=== PATIENT | female | born 1975 | race Caucasian/White ===

== ENCOUNTER → 2018-07-21 12:17 | Outpatient (CLI) | payer BC, SELFPAY ==
[2017-10-12 10:06] VITALS: BMI 42.7
--- NOTE | 2018-07-21 12:26 | RAD_ITS ---
STUDY: X-RAY CHEST REASON FOR EXAM: Female, 42 years old. Asthma exacerbation TECHNIQUE: Frontal and lateral views of the chest. COMPARISON: None. FINDINGS: Right middle lobe alveolar disease and atelectasis. Left basilar atelectasis. There is no demonstrated pleural abnormality. Normal size heart. Normal mediastinum and carmenza. Normal visualized pulmonary arteries. Normal visualized aortic arch and descending thoracic aorta. Normal visualized thoracic spine. Normal visualized ribs, clavicles, and shoulders. There is no demonstrated abnormality of the visualized soft tissue structures of the upper abdomen. RAD/Chest PA and Lateral IMPRESSION: Right middle lobe alveolar disease and atelectasis. Left basilar atelectasis. Electronically Signed: Benji Lopez MD at 1:45 EST Tel , Service support ,
== END ==
PROVIDERS: Family Provider Family Medicine; PCP Family Medicine; Referring Provider Family Medicine; Visit Provider Family Medicine
DX: J45.901 Unspecified asthma with (acute) exacerbation (principal)
CPT/HCPCS: 71046

== ENCOUNTER → 2019-03-24 | Outpatient (CLI) | payer BC, SELFPAY ==
[2018-09-16 17:24] VITALS: BMI 43.6
[2019-03-24 12:50] LABS: Creatinine, Serum 0.74 mg/dL (0.55-1.02); EST Glomerular Filtration Rate 90 mL/min (>60); Est Glom Filt Rate - Afr Amer 109 mL/min (>60)
[2019-03-24 13:10] LABS: Microalbumin,Random Urine < 5.0 mg/L (NO RANGE EST.)
== END | disposition home or self-care (01) ==
LOC: MFPLAB 10:30
PROVIDERS: Family Provider Family Medicine; PCP Family Medicine; Referring Provider Family Medicine; Visit Provider Family Medicine
DX: I10 Essential (primary) hypertension (principal)
CPT/HCPCS: 36415; 82043; 82565

== ENCOUNTER → 2020-02-28 | Outpatient (CLI) | payer BC, SELFPAY ==
[2018-09-16 17:24] VITALS: BMI 43.6
[2020-02-28 12:14] LABS: Absolute Lymphocyte Count 2.87 X10^3/uL (0.83-4.51); Absolute Neutrophil Count 5.3 X10^3/uL (2.0-7.7); Basophil# 0.03 X10^3/uL; Basophil% 0.3 % (0-1); Eosinophils% 2.3 % (0-5); Hemoglobin 14.5 g/dL (12.0-15.0); Lymphocyte # 2.87 X10^3/ul (4.0); Lymphocyte % 32.4 % (19-41); Mean Corpuscular Hgb 29.4 pg (27.0-32.0); Mean Corpuscular Volume 89.2 fL (81-99); Mean Platelet Vol. 9.7 fl (6.2-12.0); Monocyte# 0.49 X10^3/uL; Monocyte% 5.5 % (0-10); NRBC Flagged by Analyzer 0 % (0-5); Neutrophil # 5.26 X10^3/uL (2.7-7.7); Neutrophil % 59.3 % (47-70); Platelet Count 294 K/mm3 (150-450); RBC Distribution Width CV 12.3 % (11.6-14.6); RBC Distribution Width SD 40.1 fl (35.1-43.9); Red Blood Count 4.93 M/mm3 (4.2-5.4); White Blood Count 8.9 K/mm3 (4.4-11.0)
[2020-02-28 12:56] LABS: ALB/GLOB Ratio 0.8 RATIO (0.9-2.4); AST(SGOT) 16 U/L (15-37); Alanine Aminotransfer ALT/SGPT 21 U/L (13-56); Albumin, Serum 3.4 g/dL (3.2-5.0); Alkaline Phosphatase 88 U/L (45-117); Anion Gap 4 (5-15); BUN 10 mg/dL (7-18); BUN/Creat Ratio 13.2 RATIO (10-20); Calcium,Total 9.2 mg/dL (8.5-10.1); Chloride 107 mmol/L (98-107); Cholesterol 158 mg/dL (200); Creatinine, Serum 0.76 mg/dL (0.55-1.02); EST Glomerular Filtration Rate 88 mL/min (>60); Est Glom Filt Rate - Afr Amer 106 mL/min (>60); Glucose 80 mg/dL (74-106); High Density Lipoprotein 42 mg/dL; Potassium 4.3 mmol/L (3.5-5.1); Protein, Total 7.4 g/dL (6.4-8.2); Sodium Level 140 mmol/L (136-145); Triglycerides 241 mg/dL; Very Low Density Lipoprotein 48 mg/dL (5-40)
== END | disposition home or self-care (01) ==
PROVIDERS: PCP Family Medicine; Referring Provider Family Medicine; Visit Provider Registered Nurse
DX: I10 Essential (primary) hypertension (principal)
CPT/HCPCS: 36415; 80053; 80061; 85025

== ENCOUNTER → 2021-02-23 | Outpatient (CLI) | payer BC, SELFPAY | END | disposition home or self-care (01) | LOC: LABSPEC 16:30 | PROVIDERS: PCP Family Medicine; Referring Provider Family Medicine; Visit Provider Family Medicine | DX: U07.1 COVID-19 (principal) | CPT/HCPCS: 87633; 87635; U0005; U0003 ==

== ENCOUNTER 2021-09-10 17:53 | Outpatient (CLI) | payer BC, SELFPAY ==
[2021-09-18 16:49] LABS: HPV Reflexed? NOT INDICATED
== END 2021-09-10 23:59 | disposition home or self-care (01) ==
PROVIDERS: PCP Family Medicine; Visit Provider Family Medicine
DX: Z12.4 Encounter for screening for malignant neoplasm of cervix (principal)
CPT/HCPCS: 88175; G0145

== ENCOUNTER → 2021-12-13 | Outpatient (CLI) | payer BC, SELFPAY ==
[2021-12-13 13:02] LABS: Microalbumin,Random Urine < 5.0 mg/L (NO RANGE EST.)
[2021-12-13 13:12] LABS: ALB/GLOB Ratio 0.8 RATIO (0.9-2.4); AST(SGOT) 19 U/L (15-37); Alanine Aminotransfer ALT/SGPT 27 U/L (13-56); Albumin, Serum 3.5 g/dL (3.2-5.0); Alkaline Phosphatase 96 U/L (45-117); Anion Gap 8 (5-15); BUN 10 mg/dL (7-18); BUN/Creat Ratio 13.5 RATIO (10-20); Calcium,Total 9.3 mg/dL (8.5-10.1); Chloride 103 mmol/L (98-107); Cholesterol 180 mg/dL (200); Creatinine, Serum 0.74 mg/dL (0.55-1.02); EST Glomerular Filtration Rate 90 mL/min (>60); Est Glom Filt Rate - Afr Amer 109 mL/min (>60); Globulin 4.6 g/dL (2.2-4.2); Glucose 90 mg/dL (74-106); High Density Lipoprotein 43 mg/dL; Potassium 3.9 mmol/L (3.5-5.1); Protein, Total 8.1 g/dL (6.4-8.2); Sodium Level 139 mmol/L (136-145); Triglycerides 253 mg/dL; Very Low Density Lipoprotein 51 mg/dL (5-40)
[2021-12-13 13:25] LABS: Hemoglobin A1c 5.1 % (3.8-5.6)
== END | disposition home or self-care (01) ==
LOC: MFPLAB 09:53
PROVIDERS: PCP Family Medicine; Visit Provider Family Medicine
DX: Z00.00 Encounter for general adult medical examination without abnormal findings (principal); E66.01 Morbid (severe) obesity due to excess calories; Z68.41 Body mass index [BMI] 40.0-44.9, adult; I10 Essential (primary) hypertension; Z13.220 Encounter for screening for lipoid disorders
CPT/HCPCS: 36415; 80053; 80061; 82043; 82570; 83036

== ENCOUNTER → 2022-03-15 | Outpatient (CLI) | payer BC, SELFPAY ==
[2022-03-15 17:56] LABS: ALB/GLOB Ratio 0.8 RATIO (0.9-2.4); AST(SGOT) 20 U/L (15-37); Alanine Aminotransfer ALT/SGPT 26 U/L (13-56); Albumin, Serum 3.5 g/dL (3.2-5.0); Alkaline Phosphatase 90 U/L (45-117); Anion Gap 5 (5-15); BUN 10 mg/dL (7-18); BUN/Creat Ratio 12.4 RATIO (10-20); Calcium,Total 9.5 mg/dL (8.5-10.1); Chloride 106 mmol/L (98-107); EST Glomerular Filtration Rate 81 mL/min (>60); Est Glom Filt Rate - Afr Amer 98 mL/min (>60); Globulin 4.4 g/dL (2.2-4.2); Glucose 94 mg/dL (74-106); Potassium 4.2 mmol/L (3.5-5.1); Protein, Total 7.9 g/dL (6.4-8.2); Sodium Level 139 mmol/L (136-145); Thyroid Stim Hormone (TSH) 0.73 uIU/mL (0.358-3.74)
[2022-03-15 19:07] LABS: Microalbumin,Random Urine < 5.0 mg/L (NO RANGE EST.)
== END | disposition home or self-care (01) ==
LOC: MFPLAB 16:24
PROVIDERS: PCP Family Medicine; Referring Provider Family Medicine; Visit Provider Family Medicine
DX: I10 Essential (primary) hypertension (principal)
CPT/HCPCS: 36415; 80053; 82043; 82570; 84443

== ENCOUNTER 2022-06-17 10:12 | Emergency (ER) | payer BC, SELFPAY ==
[2022-06-17 10:13] VITALS: BP 184/118; PULSE 136; RESP 18; TEMP 36.8; O2SAT 99; BMI 42.9
--- NOTE | 2022-06-17 10:35 | CT_ITS ---
HISTORY: Right lower quadrant pain. TECHNIQUE: Helically acquired images were obtained of the abdomen and pelvis after the intravenous administration of 100mL Isovue-370. A radiation dose optimization technique was used for this scan. 458 images. COMPARISON: None. FINDINGS: LOWER CHEST: Right middle lobe opacity with air bronchograms. Mild dependent and tree-in-bud nodular opacities with mild atelectasis in the bilateral lower lobes. BOWEL: Bowel including appendix nondilated. Scattered stool in the colon. No terminal ileal, periappendiceal, or focal pericolonic inflammatory change observed. PERITONEUM: No significant ascites. LIVER: No enhancing mass. GALLBLADDER/BILIARY TREE: Multiple gallstones. SPLEEN/PANCREAS: Homogeneous and nonenlarged. KIDNEYS: No hydronephrosis. 9 mm right upper pole cyst. ADRENAL GLANDS: No nodules. VESSELS: No abdominal aortic aneurysm. PELVIC ORGANS: Unremarkable. ABDOMINAL WALL: Moderate sized fat-containing periumbilical hernia. BONES: Mild degenerative change. Mild lumbar levoscoliosis. CT/Abdomen/Pelvis W IV Cont ONLY IMPRESSION: Mild bibasilar atelectasis or pneumonia. Cholelithiasis. Unremarkable appendix. Small right renal cyst. Fat-containing paraumbilical hernia. Electronically Signed: Beth Almanza MD at 11:43 EST ,
[2022-06-17 10:52] LABS: Bacteria 0 SEEN /hpf (None Seen); Mucous, Urine 0 SEEN /hpf (<or=2+); Red Blood Cells-Urine 0 SEEN /hpf (0-5); Squamous Epithelial Cells - UA 0 SEEN /hpf (5-10); White Blood Cells 0 SEEN /hpf (0-5)
[2022-06-17 11:00] LABS: Color, Urine Yellow (Yellow); Glucose, Dipstick Normal (Normal); Ketone-Dipstick Negative (Negative); Leukocyte Esterase-Dipstick Negative /ul (Negative); Nitrite-Dipstick Negative (Negative); Occult Blood-Urine Negative /ul (Negative); Protein-Dipstick Negative (Negative); Urine Bilirubin Dipstick Negative (Negative); Urine Clarity Clear (Clear); Urine Urobilinogen Normal (Normal)
[2022-06-17 11:02] LABS: Absolute Lymphocyte Count 2.88 X10^3/uL (0.83-4.51); Absolute Neutrophil Count 7.3 X10^3/uL (2.0-7.7); Basophil# 0.05 X10^3/uL; Basophil% 0.5 % (0-1); Eosinophil# 0.26 X10^3/uL; Eosinophils% 2.4 % (0-5); Hematocrit 44.5 % (37-47); Hemoglobin 15.1 g/dL (12.0-15.0); Lymphocyte # 2.88 X10^3/ul (0.83-4.51); Lymphocyte % 26.2 % (19-41); Mean Corp Hgb Conc 33.9 g/dL (32-36); Mean Corpuscular Volume 88.3 fL (81-99); Mean Platelet Vol. 8.8 fl (6.2-12.0); Monocyte# 0.49 X10^3/uL; Monocyte% 4.5 % (0-10); NRBC Flagged by Analyzer 0 % (0-5); Neutrophil # 7.28 X10^3/uL (2.7-7.7); Platelet Count 337 K/mm3 (150-450); RBC Distribution Width CV 12.4 % (11.6-14.6); RBC Distribution Width SD 39.9 fl (35.1-43.9); Red Blood Count 5.04 M/mm3 (4.2-5.4)
[2022-06-17 11:14] LABS: Internal QC Validated? YES +Cl - CLEAR BKGD; Pregnancy, Serum, hCG Quali. NEGATIVE Negative
[2022-06-17 11:15] LABS: Anion Gap 4 (5-15); BUN 6 mg/dL (7-18); BUN/Creat Ratio 7.6 RATIO (10-20); Calcium,Total 9.3 mg/dL (8.5-10.1); Chloride 105 mmol/L (98-107); Creatinine, Serum 0.79 mg/dL (0.55-1.02); EST Glomerular Filtration Rate 83 mL/min (>60); Est Glom Filt Rate - Afr Amer 100 mL/min (>60); Estimated Creatinine Clearance 76.84 ml/min; Glucose 100 mg/dL (74-106); Potassium 3.6 mmol/L (3.5-5.1); Sodium Level 139 mmol/L (136-145)
[2022-06-17 11:57] VITALS: BP 148/99; PULSE 107; RESP 16; O2SAT 99
--- NOTE | 2022-06-17 12:50 | EDS_ITS ---
HPI History of Present Illness Chief Complaint: Abd Pain Informant: patient Narrative Narrative: She states she has had some discomfort of her abdomen since yesterday morning. She has had some rumbling of her bowels. She did have some slightly softer stools but no blood. She has never had nausea vomiting fevers or chills. The pain is always been down mostly in the right lower quadrant but does kind of go across the lower abdomen. Its not upper abdomen. She still has her appendix. She has no urinary symptoms such as frequency urgency dysuria hematuria. No discharge. No flank pain. Never had kidney stones. Nothing specifically makes better or worse. [facility] Medical History Acute bronchitis, unspecified Asthma child Fatigue Hay fever HTN (hypertension) Migraines SOB (shortness of breath) Home Medications albuterol sulfate 90 mcg/actuation aerosol inhaler (ProAir HFA) 2 puff inhalation Q4H PRN PRN Asthma 02/07/14 [History Last Taken Unknown] amlodipine 5 mg-benazepril 10 mg capsule (Lotrel) 1 capsule PO QHS 02/07/14 [History Last Taken Unknown] fluticasone propionate 50 mcg/actuation nasal spray,suspension 1 spray NASAL BID 02/07/14 [History Last Taken Unknown] cetirizine 10 mg capsule (Zyrtec) 10 mg PO QDAY 10/12/17 [History Last Taken Unknown] clotrimazole 10 mg amnada 10 mg mucous membrane ONCE #70 tabs 10/12/17 [Rx Last Taken Unknown] losartan 25 mg tablet 25 mg PO QDAY 10/12/17 [History Last Taken Unknown] montelukast 10 mg tablet 10 mg PO DAILY 10/12/17 [History Last Taken Unknown] fluticasone furoate 200 mcg-vilanterol 25 mcg/dose inhalation powder (Breo Ellipta) 1 inh inhalation DAILY 06/17/22 [History Last Taken Unknown] Allergy/AdvReac Type Severity Reaction Status Date / Time Penicillins Allergy Hives Verified 06/17/22 10:16 Sulfa (Sulfonamide Allergy Rash Verified 06/17/22 10:16 Antibiotics) amoxicillin [From Augmentin] AdvReac Unknown yeast Verified 06/17/22 10:16 infection clavulanic acid AdvReac Unknown yeast Verified 06/17/22 10:16 [From Augmentin] infection Social History Smoking Status: Never smoker alcohol intake: never ROS ROS ED Constitutional Constitutional ED: Denies chills, fever(s), subjective or sweats ENT ENT ED: Denies sore throat Cardiovascular Cardiovascular: Denies chest pain or palpitations Respiratory/Chest Respiratory/Chest: Denies cough or dyspnea Gastrointestinal Gastrointestinal: Reports abdominal pain and diarrhea; Denies constipation, melena, nausea or vomiting Genitourinary Genitourinary ED: Denies dysuria, hematuria or urinary frequency Musculoskeletal Musculoskeletal: Denies arthralgias, back pain, myalgias or neck pain Integumentary Denies rash Endocrine Endocrinology: Denies polydipsia or polyuria Hematologic/Lymphatic Hematologic/Lymphatic: Denies easy bleeding or easy bruising Allergic/Immunologic Allergic/Immunologic ED: Denies urticaria EXAM Physical Exam Const Vital Signs: 06/17/22 10:13 06/17/22 11:57 Temperature 98.2 F Temperature Source Temporal Pulse Rate 136 H 107 H Respiratory Rate 18 16 Blood Pressure 184/118 H 148/99 H Blood Pressure Mean 140 115 Pulse Ox 99 99 Oxygen Delivery Method Room Air Room Air Positive well nourished and well developed General Appearance ED: well developed and NAD; Negative for pallor HEENT Reports moist mucous membranes Eyes General Eye ED: Negative for scleral icterus Chest Wall inspection of chest normal Resp normal respiratory effort and clear to auscultation bilaterally Cardio regular rate, regular rhythm and no murmurs Rate: other Other Details: On my exam heart rate is about 100. GI normal to inspection, nondistended, normoactive bowel sounds GI Narrative: Abdomen is soft. Bowel sounds are normal. Not distended. She really has no notable tenderness down the right lower quadrant. No rebound or guarding. No CVA tenderness. Despite her symptoms, this is a surprisingly benign exam. Narrative: No suprapubic or CVA tenderness. Back/Spine no CVA tenderness Extremity General Extremety ED: Negative for tenderness Neuro Sensorium / Orientation: alert Skin General Skin Exam: Negative for pallor MDM MDM MDM Narrative Medical decision making narrative: CT scan of her abdomen is not showing any acute cause of her symptoms. Her CBC showed normal white count and platelets. Hemoglobin was minimally elevated. E lectrolytes were unremarkable. Urine is clean showed no sign infection. test was negative. There is no indication of the cause of her symptoms. I do not think she needs further work-up or imaging. I do not think she requires admission. I think rest and bowel rest should be appropriate. She is eating and drinking normally. If she develops pain fevers urinary symptoms or other concerning findings she should return. I think she is safe for discharge. No sign of kidney stone as a source of her pain also. Lab Data Attestation: I reviewed the patient's lab results. Labs: Laboratory Results - last 24 hr 06/17/22 06/17/22 06/17/22 10:45 10:50 10:50 WBC 11.0 RBC 5.04 Hgb 15.1 H Hct 44.5 MCV 88.3 MCH 30.0 MCHC 33.9 RDW Std Deviation 39.9 RDW Coeff of Tasha 12.4 Plt Count 337 MPV 8.8 Immature Gran % (Auto) 0.400 Neut % (Auto) 66.0 Lymph % (Auto) 26.2 [place] % (Auto) 4.5 Eos % (Auto) 2.4 Baso % (Auto) 0.5 Absolute Neuts (auto) 7.3 Absolute Lymphs (auto) 2.88 Nucleated RBC % 0 Sodium 139 Potassium 3.6 Chloride 105 Carbon Dioxide 30.0 Anion Gap 4 L BUN 6 L Creatinine 0.79 Estim Creat Clear Calc 76.84 Est GFR (MDRD) Af Amer 100 Est GFR (MDRD) Non-Af 83 BUN/Creatinine Ratio 7.6 L Glucose 100 Calcium 9.3 Serum , Qual Urine Color Yellow Urine Clarity Clear Urine pH 8.0 Ur Specific [place] 1.010 Urine Protein Negative Urine Glucose (UA) Normal Urine Ketones Negative Urine Occult Blood Negative Urine Nitrite Negative Urine Bilirubin Negative Urine Urobilinogen Normal Ur Leukocyte Esterase Negative Urine RBC 0 SEEN Urine WBC 0 SEEN Ur Squamous Epith Cells 0 SEEN Urine Bacteria 0 SEEN Urine Mucus 0 SEEN 06/17/22 10:50 WBC RBC Hgb Hct MCV MCH MCHC RDW Std Deviation RDW Coeff of Tasha Plt Count MPV Immature Gran % (Auto) Neut % (Auto) Lymph % (Auto) [place] % (Auto) Eos % (Auto) Baso % (Auto) Absolute Neuts (auto) Absolute Lymphs (auto) Nucleated RBC % Sodium Potassium Chloride Carbon Dioxide Anion Gap BUN Creatinine Estim Creat Clear Calc Est GFR (MDRD) Af Amer Est GFR (MDRD) Non-Af BUN/Creatinine Ratio Glucose Calcium Serum , Qual NEGATIVE Urine Color Urine Clarity Urine pH Ur Specific [place] Urine Protein Urine Glucose (UA) Urine Ketones Urine Occult Blood Urine Nitrite Urine Bilirubin Urine Urobilinogen Ur Leukocyte Esterase Urine RBC Urine WBC Ur Squamous Epith Cells Urine Bacteria Urine Mucus Radiography Diagnostic Testing: Clinical Impression(s) from Imaging Studies Abdomen/Pelvis CT 06/17/22 10:35 IMPRESSION: Mild bibasilar atelectasis or pneumonia. Cholelithiasis. Unremarkable appendix. Small right renal cyst. Fat-containing paraumbilical hernia. Electronically Signed: Beth Almanza MD at 11:43 EST , CT abdomen pelvis showed hinted of some basilar atelectasis or possible pneumonia. Her symptoms do not match pneumonia. There was some cholelithiasis but no sign of inflammation. She has no right upper quadrant pain. Appendix was seen and was normal. There is small right renal cyst which would be unlikely to be causing her symptoms. She has a fat-containing periumbilical hernia but she is not tender there. She does have history of prior umbilical hernia surgery. Discharge Plan Triage Chief Complaint: Abd Pain ED Provider: Vaibhav Mckeon Dx/Rx/DC Orders Clinical Impression: Abdominal pain Instructions: ED Abdominal Pain Unkn Cause Fem Prescriptions: No Action losartan 25 mg tablet 25 mg PO QDAY cetirizine [Zyrtec] 10 mg capsule 10 mg PO QDAY clotrimazole 10 mg amanda 10 mg Mucous Membrane ONCE Qty: 70 0RF Rx Instructions: use 5 times daily. amlodipine-benazepril [Lotrel] 1 CAPSULE capsule 1 capsule PO QHS albuterol sulfate [ProAir HFA] 1 PUFF inhaler 2 puff inhalation Q4H PRN PRN (Reason: Asthma) fluticasone propionate 1 SPRAY spray,suspension 1 spray NASAL BID montelukast 10 mg tablet 10 mg PO DAILY fluticasone furoate-vilanterol [Breo Ellipta] 200-25 mcg/dose blister with device 1 inh INHALATION DAILY Label Comments: INHALE 1 PUFF BY MOUTH ONCE DAILY Primary Care Provider: Vernon Marks Referrals: Vernon Marks MD [Primary Care Provider] - 1-2 Days if not improving Disposition Disposition: Home, Self Care
== END 2022-06-17 13:05 | disposition home or self-care (01) ==
PROVIDERS: Emergency Provider Emergency Medicine; PCP Family Medicine; Visit Provider Emergency Medicine
DX: R10.9 Unspecified abdominal pain (principal); I10 Essential (primary) hypertension; Z79.899 Other long term (current) drug therapy
CPT/HCPCS: 74177; 80048; 81001; 84703; 85025; 96360; 99283; J7040; Q9967; A4216

== ENCOUNTER → 2022-11-18 | Outpatient (CLI) | payer BC, SELFPAY | END | disposition home or self-care (01) | LOC: LABSPEC 12:28 | PROVIDERS: PCP Family Medicine; Referring Provider Family Medicine; Visit Provider Family Medicine | DX: J02.9 Acute pharyngitis, unspecified (principal) | CPT/HCPCS: 87070; 87077 ==

== ENCOUNTER → 2023-08-01 | Outpatient (CLI) | payer BC, SELFPAY ==
[2023-08-01 11:11] LABS: Hemoglobin A1c 5.2 % (3.8-5.6)
[2023-08-01 11:15] LABS: ALB/GLOB Ratio 0.8 RATIO (0.9-2.4); AST(SGOT) 25 U/L (15-37); Alanine Aminotransfer ALT/SGPT 23 U/L (13-56); Albumin, Serum 3.7 g/dL (3.2-5.0); Alkaline Phosphatase 98 U/L (45-117); Anion Gap 5 (5-15); BUN 11 mg/dL (7-18); BUN/Creat Ratio 13.9 RATIO (10-20); Calcium,Total 9.5 mg/dL (8.5-10.1); Chloride 108 mmol/L (98-107); Cholesterol 171 mg/dL (200); Creatinine, Serum 0.79 mg/dL (0.55-1.02); EST Glomerular Filtration Rate 82 mL/min (>60); Est Glom Filt Rate - Afr Amer 100 mL/min (>60); Globulin 4.5 g/dL (2.2-4.2); Glucose 91 mg/dL (74-106); High Density Lipoprotein 43 mg/dL; Microalbumin,Random Urine 7.1 mg/L (NO RANGE EST.); Potassium 3.8 mmol/L (3.5-5.1); Protein, Total 8.2 g/dL (6.4-8.2); Sodium Level 139 mmol/L (136-145); Triglycerides 244 mg/dL; Very Low Density Lipoprotein 49 mg/dL (5-40)
== END | disposition home or self-care (01) ==
LOC: MFPLAB 09:06
PROVIDERS: PCP Family Medicine; Visit Provider Family Medicine
DX: Z00.01 Encounter for general adult medical examination with abnormal findings (principal); E66.01 Morbid (severe) obesity due to excess calories; Z68.41 Body mass index [BMI] 40.0-44.9, adult; Z13.220 Encounter for screening for lipoid disorders; I10 Essential (primary) hypertension; J02.9 Acute pharyngitis, unspecified
CPT/HCPCS: 36415; 80053; 80061; 82043; 82570; 83036

== ENCOUNTER 2024-01-05 15:51 | Emergency (ER) | payer OTHER, SELFPAY ==
[2024-01-05] VITALS (7 sets, daily range): BP systolic 150–173; BP diastolic 94–121; PULSE 60–128; RESP 11–18; TEMP 36.2–36.8; O2SAT 95–99; BMI 43.2
--- NOTE | 2024-01-05 16:00 | EKG12_ITS ---
Test Reason : Blood Pressure : / mmHG Vent. Rate : 120 BPM Atrial Rate : 120 BPM P-R Int : 144 ms QRS Dur : 076 ms QT Int : 432 ms P-R-T Axes : -15 020 044 degrees QTc Int : 610 ms Critical Test Result: Long QTc Sinus tachycardia Nonspecific ST and T wave abnormality Prolonged QT Abnormal ECG Confirmed by JERMAINE CLEMENT, CAMELIA ([id number]), subeditor YO SIU ([id number]) on 01/06/2024 8:36:33 AM Referred By: [email or web address] Confirmed By:CAMELIA DEAN MD
--- NOTE | 2024-01-05 16:32 | RAD_ITS ---
STUDY: X-RAY CHEST REASON FOR EXAM: Female, 48 years old. TACHYCARDIA TECHNIQUE: PA and lateral views of the chest. COMPARISON: July 21, 2018 FINDINGS: There are monitoring devices. There are mild lower lung interstitial increased opacities. There is no demonstrated pleural abnormality. Normal size heart. Normal mediastinum and carmenza. Normal visualized pulmonary arteries. Normal visualized aortic arch and descending thoracic aorta. There is a dextroscoliosis of the thoracic spine. Normal visualized ribs, clavicles, and shoulders. There is no demonstrated abnormality of the visualized soft tissue structures of the upper abdomen. RAD/Chest PA and Lateral IMPRESSION: Mild lower lung interstitial edema or infiltrates. Electronically Signed: Luis Vaca MD at 19:01 EDT ,
--- NOTE | 2024-01-05 16:35 | EX.ED.DYSGE1 ---
HPI History of Present Illness Chief Complaint: Dizziness Informant: patient Onset/Context/Timing Onset: Days Context: Gradual Onset Timing: Intermittent Current Severity: Mild Maximum Severity: Mild Narrative Narrative: 48-year-old female history of hypertension prior vertigo and asthma. Says she has had intermittent dizziness with accelerated heart rate the last several days. Said the dizziness comes in waves. As she feels off balance. She denies any weakness to her arms or legs. No headache. No head trauma. No history of stroke or mini stroke. That she is better she is flat. It does not change with head movement. She denies any chest pain or shortness of breath. She denies any fever or chills. She denies any vomiting or diarrhea. No dysuria. No changes in her bowel movements or her urination. Saw her primary care physician today you are seen in the emergency department. Prior similar symptoms: No Recent Illness/Hospitalization: No [facility] Medical History Acute bronchitis, unspecified child Asthma Migraines Hay fever Fatigue SOB (shortness of breath) HTN (hypertension) Home Medications ?Medication ?Instructions ?Recorded ?Last Taken ?Type fluticasone propionate 50 1 spray NASAL BID 02/07/14 Unknown History mcg/actuation nasal spray,suspension cetirizine 10 mg capsule (Zyrtec) 10 mg PO QDAY 10/12/17 Unknown History montelukast 10 mg tablet 10 mg PO DAILY 10/12/17 Unknown History fluticasone furoate 200 1 inh inhalation DAILY 06/17/22 Unknown History mcg-vilanterol 25 mcg/dose inhalation powder (Breo Ellipta) albuterol sulfate 90 mcg/actuation 2 inh inhalation Q4H PRN shortness 01/05/24 Unknown History aerosol inhaler of breath or wheezing amlodipine 5 mg tablet 5 mg PO QHS 01/05/24 Unknown History azelastine 137 mcg (0.1 %) nasal 1 spray intranasal Q12H 01/05/24 Unknown History spray chlorpheniramine maleate 4 mg 4 mg PO QHS PRN allergy symptoms 01/05/24 Unknown History tablet (Aller-Chlor) ipratropium bromide 21 mcg (0.03 2 spray intranasal Q6H PRN 01/05/24 Unknown History %) nasal spray irbesartan 150 mg tablet 150 mg PO DAILY 01/05/24 Unknown History levalbuterol tartrate 45 1 - 2 puff inhalation Q4H 01/05/24 Unknown History mcg/actuation aerosol inhaler levofloxacin 500 mg tablet 500 mg PO DAILY 6 days #6 tabs 01/05/24 Unknown Rx multivitamin 1 tab PO DAILY 01/05/24 Unknown History omeprazole 20 mg capsule,delayed 20 mg PO DAILY 01/05/24 Unknown History release spironolactone 25 0.5 - 1 tab PO DAILY blood pressure 01/05/24 Unknown History mg-hydrochlorothiazide 25 mg tablet turmeric 400 mg capsule 400 mg PO DAILY 01/05/24 Unknown History Allergy/AdvReac Type Severity Reaction Status Date / Time Penicillins Allergy Hives Verified 01/05/24 15:52 Sulfa (Sulfonamide Allergy Rash Verified 01/05/24 15:52 Antibiotics) amoxicillin (From Augmentin) AdvReac Unknown yeast Verified 01/05/24 15:52 infection clavulanic acid (From AdvReac Unknown yeast Verified 01/05/24 15:52 Augmentin) infection Family History no significant family his Social History Smoking Status: Never smoker alcohol intake: never ROS ROS ED ROS Narrative Dizziness. Accelerated heart rate. Nausea. No chest pain. No fever. No vomiting or diarrhea. Review of Systems ROS Unobtainable: Denies due to encephalopathy Constitutional Constitutional ED: Denies chills or fever(s) Eyes Eyes: Denies blurry vision ENT ENT ED: Denies ear pain Cardiovascular Cardiovascular: Reports palpitations and racing heartbeat; Denies chest pain Respiratory/Chest Respiratory/Chest: Denies cough or dyspnea Gastrointestinal Gastrointestinal: Reports nausea; Denies abdominal pain, constipation, diarrhea, melena or vomiting Genitourinary Genitourinary ED: Denies dysuria or hematuria Integumentary Denies abscess Psychiatric Psychiatric: Denies anxiety or depression Hematologic/Lymphatic Hematologic/Lymphatic: Reports none Allergic/Immunologic Allergic/Immunologic ED: Denies mouth swelling, tongue swelling or urticaria EXAM Physical Exam Narrative Exam Narrative: Well-appearing 40-year-old female. Vital signs are stable except her blood pressure is elevated at 170/121 her heart rate is 128 sinus rhythm. Pulse ox 90% on room air no hypoxia. Her temperature is 97.1. She does not look septic or toxic she tolerated this well. She is no distress. Significant other at bedside. H EENT exam pupils round react light. No facial droop. Moist mucous membranes. Normal speech. Extraocular motions are intact. TMs and canals normal bilaterally. Neck nontender. Lungs clear. Heart tachycardic 122 no murmur. Chest wall and ribs nontender. Abdomen soft nontender. Moving all 4 extremities. Calves are nontender without edema or cords. Equal symmetrical radial pulses. 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 Normal dorsi plantarflexion. Neurologically she is awake and alert. Answering questions following commands. Fingertip to nose and [id number] within normal limits. NIH normal sitting in bed. Back nontender. Benign exam. Const Vital Signs: 01/05/24 15:54 01/05/24 16:52 01/05/24 18:00 Temperature 97.1 F L Temperature Source Temporal Pulse Rate 128 H 116 H 107 H Respiratory Rate 18 11 L 14 Blood Pressure 170/121 H 173/95 H Blood Pressure Mean 137 121 Pulse Ox 98 97 97 Oxygen Delivery Method Room Air Room Air 01/05/24 19:06 01/05/24 20:00 Temperature Temperature Source Pulse Rate 60 112 H Respiratory Rate 18 18 Blood Pressure 173/94 H 167/108 H Blood Pressure Mean 120 127 Pulse Ox 99 98 Oxygen Delivery Method Room Air Room Air Positive well nourished and well developed; Negative for cachectic, contractures or unkempt General Appearance ED: well developed and NAD; Negative for unkempt, cachectic, contractures, cyanotic, diaphoretic or pallor Nutritional Appearance: Negative for cachectic HEENT Reports TM's clear and moist mucous membranes Negative for trauma or tenderness Tympanic Membrane ED: Yes TM's clear Eyes PERRL and EOMs intact bilaterally General Eye ED: Negative for pale conjunctiva, scleral icterus or other Neck no lymphadenopathy, supple and no JVD General: Negative for tenderness Lymph Lymphatic: Negative for other Chest Wall inspection of chest normal and palpation of chest normal Resp normal respiratory effort and clear to auscultation bilaterally Effort and Inspection: Negative for retractions Auscultation: Negative for rales, rhonchi, wheezes or diminished lung sounds Cardio regular rhythm, S1 normal heart sound, S2 normal heart sound and no murmurs; Negative for regular rate Rate: tachycardic Rhythm: Negative for abnormal rhythm GI normal to inspection, nondistended, normoactive bowel sounds, non-tender, non-distended and no masses Inspection: Negative for abdominal distention Auscultation: normoactive bowel sounds Palpation: soft; Negative for tender, guarding or rebound tenderness present Back/Spine no CVA tenderness General Back: Negative for CVA tenderness Cervical Spine: Negative for cervical spine tenderness Thoracic Spine / Upper Back: Negative for thoracic spinal tenderness or paraspinal muscle tenderness Lumbar Spine / Lower Back: Negative for lumbar spinal tenderness Extremity normal to inspection General Extremety ED: Negative for edema, tenderness or other findings General Extremity: Negative for edema or other findings Neuro oriented x3 and CN's II-XII intact bilaterally Sensorium / Orientation: alert; Negative for orientation impaired, lethargic or stuporous Motor Exam: strength 5/5 throughout; Negative for general weakness or strength abnormal Psych mental status grossly normal Appearance: Negative for unkempt Attitude: No agitated Mood & Affect: Negative for depressed, anxious or tearful Skin no rashes or lesions noted, no wounds and skin turgor normal General Skin Exam: elasticity normal; Negative for jaundice or pallor Lesions: No lesion noted Rashes: No rashes noted Trauma: Negative for abrasion Wounds: Negative for wounds noted MDM MDM MDM Narrative Medical decision making narrative: Patient complained of dizziness with tachycardia and hypertension. Exam is normal. Neurologic exam is normal. CAT scan of brain screening labs and a chest x-ray. She is having no urinary symptoms. She has no fever. She has no chest pain or shortness of breath. Repeat exam patient doing well at 9 PM. I discussed all of her test results with her and I believe her at bedside. Her chest x-ray she may have a right lower lobe infiltrate. She will be treated for pneumonia. Clinically I think she was mildly dehydrated she was given a liter of fluid her heart rates currently 100. I got her up and ambulated her and she walks without any difficulty. No ataxia. No trouble with her balance. Repeat exam is normal and otherwise unchanged. Clinically looks much better. She is comfortable being discharged home. Outpatient follow-up next several days. She has an allergy to penicillin and says Zithromax does not work for her. She will be placed on Levaquin 500 daily for 7 days. Follow-up with her doctor next several days to ensure she is improving. History & Record Review Discussion w/independent historian: Patient Additional record(s) reviewed:: Prior inpatient record and Prior outpatient record Lab Data Attestation: I reviewed the patient's lab results. Lab results narrative: CBC shows white count 11. H&H is 16 and 50. Platelets 324. Electrolytes show potassium 3.4. Gap 5. BUN of 12 creatinine 1.38. Glucose 117. Labs: Laboratory Results - last 24 hr 01/05/24 16:15 WBC 11.0 RBC 5.84 H Hgb 16.9 H Hct 50.0 H MCV 85.6 MCH 28.9 MCHC 33.8 RDW Std Deviation 38.0 RDW Coeff of Tasha 12.2 Plt Count 324 MPV 10.0 Immature Gran % (Auto) 0.200 Neut % (Auto) 60.1 Lymph % (Auto) 30.4 [place] % (Auto) 6.3 Eos % (Auto) 2.6 Baso % (Auto) 0.4 Absolute Neuts (auto) 6.6 Absolute Lymphs (auto) 3.34 Nucleated RBC % 0 Sodium 136 Potassium 3.4 L Chloride 103 Carbon Dioxide 28.0 Anion Gap 5 BUN 12 Creatinine 1.38 H Estim Creat Clear Calc 61.82 Est GFR (MDRD) Af Amer 52 L Est GFR (MDRD) Non-Af 43 L BUN/Creatinine Ratio 8.7 L Glucose 117 H Calcium 9.4 Radiography Chest X-Ray - ED: 1 View, 2 View, Read by ED Physician, Normal, Heart, Mediastinum, Bony Structures and Right Infiltrate Diagnostic Testing: Clinical Impression(s) from Imaging Studies Chest X-Ray 01/05/24 16:32 IMPRESSION: Mild lower lung interstitial edema or infiltrates. Electronically Signed: Luis Vaca MD at 19:01 EDT , Brain CT 01/05/24 18:25 IMPRESSION: Chronic involutional changes of the brain. Consider MRI for further evaluation. Electronically Signed: Luis Vaca MD at 19:00 EDT , Chest x-ray shows right lower lobe infiltrate consistent with a possible pneumonia. Rhythm Strip Rhythm Strip: Sinus Tach Rate: 120 Ectopy: None EKG Initial EKG: Attestation: I personally reviewed and interpreted this EKG as follows: Interpretation: No Acute Injury Pattern and Sinus Tachycardia Comments: Sinus tachycardia rate of 120. No acute signs of VA or ischemia. Discharge Plan Triage Chief Complaint: Dizziness ED Provider: Jeremy Henry Dx/Rx/DC Orders Clinical Impression: Pneumonia, Acute dehydration, Dizziness Instructions: ED Dehydration (Adult), ED Pneumonia (Adult) Prescriptions: New levofloxacin 500 mg tablet 500 mg PO DAILY 6 Days Qty: 6 0RF No Action cetirizine [Zyrtec] 10 mg capsule 10 mg PO QDAY fluticasone propionate 1 SPRAY spray,suspension 1 spray NASAL BID montelukast 10 mg tablet 10 mg PO DAILY fluticasone furoate-vilanterol [Breo Ellipta] 200-25 mcg/dose blister with device 1 inh INHALATION DAILY Patient Comments: INHALE 1 PUFF BY MOUTH ONCE DAILY albuterol sulfate 90 mcg/actuation HFA aerosol inhaler 2 inh inhalation Q4H PRN (Reason: shortness of breath or wheezing) levalbuterol tartrate 45 mcg/actuation HFA aerosol inhaler 1 - 2 puff INHALATION Q4H spironolacton-hydrochlorothiaz 25-25 mg tablet 0.5 - 1 tab PO DAILY amlodipine 5 mg tablet 5 mg PO QHS irbesartan 150 mg tablet 150 mg PO DAILY multivitamin Tablet 1 tab PO DAILY turmeric 400 mg capsule 400 mg PO DAILY omeprazole 20 mg capsule,delayed release(DR/EC) 20 mg PO DAILY azelastine 137 mcg (0.1 %) spray,non-aerosol 1 spray intranasal Q12H Rx Instructions: administer into each nostril chlorpheniramine maleate [Aller-Chlor] 4 mg tablet 4 mg PO QHS PRN ipratropium bromide 21 mcg (0.03 %) spray,non-aerosol 2 spray intranasal Q6H PRN Rx Instructions: administer into each nostril Primary Care Provider: Vernon Marks Referrals: Vernon Marks MD [Primary Care Provider] - 3-5 Days Activity Restrictions/Additional Instructions: CAT scan look good. Your labs look good other mild dehydration. Chest x-ray shows which could be a possible early right lower lobe pneumonia. Plenty of fluids such as water, 7-Up and Gatorade. The antibiotic Levaquin 1 pill/day for the next 7 days total. First dose given in the ER. Follow-up with your doctor to ensure you are improving. Return if a lot worse. Print Language: Mongolian Disposition Disposition: Home, Self Care
[2024-01-05 17:20] LABS: Absolute Lymphocyte Count 3.34 X10^3/uL (0.83-4.51); Absolute Neutrophil Count 6.6 X10^3/uL (2.0-7.7); Basophil# 0.04 X10^3/uL; Basophil% 0.4 % (0-1); Eosinophil# 0.29 X10^3/uL; Eosinophils% 2.6 % (0-5); Hemoglobin 16.9 g/dL (12.0-15.0); Lymphocyte # 3.34 X10^3/ul (0.83-4.51); Lymphocyte % 30.4 % (19-41); Mean Corp Hgb Conc 33.8 g/dL (32-36); Mean Corpuscular Hgb 28.9 pg (27.0-32.0); Mean Corpuscular Volume 85.6 fL (81-99); Monocyte# 0.69 X10^3/uL; Monocyte% 6.3 % (0-10); NRBC Flagged by Analyzer 0 % (0-5); Neutrophil # 6.59 X10^3/uL (2.7-7.7); Neutrophil % 60.1 % (47-70); Platelet Count 324 K/mm3 (150-450); RBC Distribution Width CV 12.2 % (11.6-14.6); Red Blood Count 5.84 M/mm3 (4.2-5.4)
[2024-01-05 17:39] LABS: Anion Gap 5 (5-15); BUN 12 mg/dL (7-18); BUN/Creat Ratio 8.7 RATIO (10-20); Calcium,Total 9.4 mg/dL (8.5-10.1); Chloride 103 mmol/L (98-107); Creatinine, Serum 1.38 mg/dL (0.55-1.02); EST Glomerular Filtration Rate 43 mL/min (>60); Est Glom Filt Rate - Afr Amer 52 mL/min (>60); Estimated Creatinine Clearance 61.82 ml/min; Glucose 117 mg/dL (74-106); Potassium 3.4 mmol/L (3.5-5.1); Sodium Level 136 mmol/L (136-145)
[2024-01-05] MEDS: Ondansetron 4 MG/2 ML Vial IV (17:57)
[2024-01-05] MEDS: 0.9% Normal Saline (1000mL) 1,000 ML 999 ML IV (17:57)
--- NOTE | 2024-01-05 18:25 | CT_ITS ---
STUDY: CT BRAIN WITHOUT CONTRAST REASON FOR EXAM: Female, 48 years old. DIZZINESS RADIATION DOSAGE (If Supplied By Facility): CTDIvol = ( 44.99 ) mGy, DLP = ( 829.85 ) mGycm TECHNIQUE: Transaxial CT imaging of the brain was performed without administration of intravenous contrast material. Individualized dose optimization techniques were used for this CT. COMPARISON: No relevant priors. FINDINGS: Normal soft tissue structures. Normal calvarium. Normal size ventricles and extra-axial spaces for the patient''s age. There is focal chronic appearing volume loss of the left parieto-occipital region. Normal basal ganglia and thalami. Normal brainstem. Normal cerebellum. There is no intracranial hemorrhage. There are no findings of an acute ischemic infarction. There is mucosal retention cyst or polyp left maxillary sinus. CT/Brain/Head without Contrast IMPRESSION: Chronic involutional changes of the brain. Consider MRI for further evaluation. Electronically Signed: Luis Vaca MD at 19:00 EDT ,
[2024-01-05] MEDS: levoFLOXacin 500 MG Tablet PO (21:13)
== END 2024-01-05 21:20 | disposition home or self-care (01) ==
PROVIDERS: Emergency Provider Emergency Medicine; PCP Family Medicine; Visit Provider Emergency Medicine
DX: J18.9 Pneumonia, unspecified organism (principal); I10 Essential (primary) hypertension; E86.0 Dehydration; R42 Dizziness and giddiness; J45.909 Unspecified asthma, uncomplicated; Z79.899 Other long term (current) drug therapy
CPT/HCPCS: 70450; 71046; 80048; 85025; 93005; 96361; 96374; 99284; J7030; J2405

== ENCOUNTER → 2024-04-13 | Outpatient (CLI) | payer OTHER, SELFPAY ==
--- NOTE | 2024-04-13 12:39 | RAD_ITS ---
INDICATION: wheezing EXAMINATION/TECHNIQUE: X-RAY - XR Chest 2 Views COMPARISON: Prior study dated: 01/05/2024 FINDINGS: LINES/DEVICES: None. LUNGS: Linear atelectatic changes in the lingula new since previous exam. No evidence of pleural effusions. MEDIASTINUM AND CARDIOVASCULAR STRUCTURES: Cardiac silhouette not enlarged. Central airways and mediastinal contour are unremarkable. BONES AND SOFT TISSUES: Unremarkable. RAD/Chest PA and Lateral IMPRESSION: Atelectatic changes in the lingula. Electronically Signed: Jordy Yost MD at 13:08 EDT ,
== END | disposition home or self-care (01) ==
LOC: MTRAD 12:39
PROVIDERS: PCP Family Medicine; Referring Provider Family Medicine; Visit Provider Family Medicine
DX: J02.9 Acute pharyngitis, unspecified (principal); J45.909 Unspecified asthma, uncomplicated
CPT/HCPCS: 71046

== ENCOUNTER → 2025-06-10 | Outpatient (CLI) | payer OTHER, SELFPAY ==
--- OUTSIDE RECORDS SUMMARY | 2025-06-10 08:31 | XMS RPT_ITS | CCD ---
Author Organization [facility] Care Team Providers Care Recruiting Scheduler Name Role Phone Dr. Vernon Marks Primary Care Provider Dr. Vernon Marks Referring Provider LUIS A Sierra Attending Provider [phone] Vernon Marks Primary Care Unavailable Vernon Marks Attending Unavailable Vernon Marks Primary Care Unavailable Chiki Jimenez Attending Unavailable Chiki Jimenez Referring Unavailable Jeremy Henry Attending Unavailable Vernon Marks Primary Care Unavailable Vernon Marks Primary Care Unavailable Vernon Marks Referring Unavailable Magan Sierra Attending Unavailable Vernon Marks Referring Unavailable Juan Ramon Beckwith Attending Unavailable Vernon Marks Primary Care Unavailable Allergies Allergy Classification Reported Allergen(s) Allergy Type Date of Onset Reaction(s) Facility (4 sources) Amoxicillin Drug Allergy 9 yeast infection [facility] (4 sources) Clavulanate Drug Allergy 9 yeast infection [facility] (5 sources) Sulfonamides (Antibiotic); Translations: [Sulfa (Sulfonamide Antibiotics)] Allergy to substance 9 Rash [facility] (1 source) Penicillins Allergy to substance 3 Hives [facility] (1 source) Amoxicillin Drug Allergy 4 [facility] (1 source) Clavulanate Drug Allergy 4 [facility] (1 source) Penicillins Drug allergy (disorder) 4 [facility] Medications Current Medications Medication Drug Class(es) Dates Sig (Normalized) Sig (Original) Albuterol Sulfate (3 sources) beta2-Adrenergic Agonist Start: 02-07-2014 take 1 puff(s) by inhalation every four hours as needed Albuterol Sulfate (Proair Hfa) 1 PUFF inhaler Active 2 PUFF INHALATION EVERY 4 HOURS NEEDED February 07, 2014 6:37am Start: 02-07-2014 take 1 puff(s) by in halation every four hours as needed Albuterol Sulfate (Proair Hfa) 1 PUFF inhaler Active 2 PUFF INHALATION EVERY 4 HOURS NEEDED February 07, 2014 12:00am Albuterol Sulfate (Proair Hfa) 1 PUFF inhaler (1 source) Start: 02-07-2014 take 1 puff(s) by inhalation every four hours as needed Albuterol Sulfate (Proair Hfa) 1 PUFF inhaler Active 2 PUFF INHALATION EVERY 4 HOURS NEEDED February 06, 2014 11:00pm amLODIPine 5 mg / benazepril hydrochloride 10 mg oral capsule (4 sources) Dihydropyridine Calcium Channel Kirsten, Angiotensin Converting Enzyme Inhibitor Start: 02-07-2014 take 1 capsule by mouth at bedtime Amlodipine-Benaze pril (Lotrel 5-10 Mg Capsule) 1 CAPSULE capsule Active 1 CAPSULE PO AT BEDTIME February 06, 2014 11:00pm cetirizine hydrochloride 10 mg oral capsule (4 sources) Histamine-1 Receptor Antagonist Start: 10-12-2017 take 1 capsule by mouth once daily Cetirizine (Zyrtec) 10 mg capsule Active 10 MG PO daily October 11, 2017 11:00pm clotrimazole 10 mg oral lozenge (4 sources) Azole Antifungal Start: 10-12-2017 Clotrimazole Active 10 MG MUCOUS MEM ONCE 70 October 11, 2017 11:00pm use 5 times daily. doxycycline hyclate 100 mg oral capsule (3 sources) Tetracycline-class Drug Start: 08-10-2022 take 100 mg by mouth twice daily Doxycycline Hyclate Active 100 MG PO TWICE A DAY August 10, 2022 12:00am Start: 10-22-2021 take 100 mg by mouth twice daily Doxycycline Monohydrate Active 100 MG PO TWICE A DAY October 22, 2021 12:00am fluticasone propionate 0.05 mg/actuat metered dose nasal spray (4 sources) Corticosteroid Start: 02-07-2014 Fluticasone Propionate Active 1 SPRAY NASAL TWICE A DAY February 06, 2014 11:00pm 30 actuat fluticasone furoate 0.2 mg/actuat / vilanterol 0.025 mg/actuat dry powder inhaler (1 source) Corticosteroid, beta2-Adrenergic Agonist Start: 06-17-2022 Fluticasone Furoate-Vilantero l (Breo Ellipta) 200-25 mcg/dose blister with device Active 1 INH INHALATION DAILY June 17, 2022 12:00am losartan potassium 25 mg oral tablet (4 sources) Angiotensin 2 Receptor Kirsten Start: 10-12-2017 take 25 mg by mouth once daily Losartan Active 25 MG PO daily October 11, 2017 11:00pm montelukast 10 mg oral tablet (8 sources) Leukotriene Receptor Antagonist Start: 02-07-2014 End: 10-12-2017 take 10 mg by mouth once daily Montelukast Active 10 MG PO DAILY October 12, 2017 9:07am Completed/Discontinued Medications Medication Drug Class(es) Dates Sig (Normalized) Sig (Original) acetaminophen 325 mg / oxyCODONE hydrochloride 5 mg oral tablet (4 sources) Opioid Agonist Start: 07-11-2015 End: 10-12-2017 take 1 tablet by mouth every six hours as needed Oxycodone-Acetamin ophen Discontinued 1 - 2 TABLET PO EVERY 6 HOURS NEEDED July 11, 2015 12:00am October 12, 2017 9:08am amoxicillin 500 mg oral capsule (4 sources) Penicillin-class Antibacterial Start: 09-16-2018 End: 09-26-2018 take 1000 mg by mouth twice daily Amoxicillin Discontinued 1000 MG PO TWICE A DAY 40 September 15, 2018 11:00pm September 25, 2018 11:08pm amoxicillin 875 mg / clavulanate 125 mg oral tablet (4 sources) Penicillin-class Antibacterial Start: 10-12-2017 End: 10-22-2017 take 1 tablet by mouth every twelve hours Amoxicillin-Pot Clavulanate Discontinued 1 TABLET PO Q12H 20 October 11, 2017 11:00pm October 21, 2017 11:05pm azithromycin 250 mg oral tablet (4 sources) Macrolide Antimicrobial Start: 09-16-2018 End: 09-16-2018 Azithromycin Discontinued 250 MG PO daily September 15, 2018 11:00pm September 16, 2018 4:46pm 2 tablets today, then 1 tablet daily on days 2 through 11 120 actuat formoterol fumarate 0.005 mg/actuat / mometasone furoate 0.2 mg/actuat metered dose inhaler (4 sources) Corticosteroid, beta2-Adrenergic Agonist Start: 02-07-2014 End: 10-12-2017 take 13 g by inhalation twice daily Mometasone-Formote rol Discontinued 13 GM IH TWICE A DAY February 06, 2014 11:00pm October 12, 2017 9:07am omeprazole 40 mg delayed release oral capsule (4 sources) Proton Pump Inhibitor Start: 02-07-2014 End: 10-12-2017 take 20 mg by mouth at bedtime Omeprazole Discontinued 20 MG PO AT BEDTIME February 06, 2014 11:00pm October 12, 2017 9:08am Problems Active Problems Problem Classification Problem Date Documented Date Episodic/Chronic Abdominal pain (1 source) Abdominal pain; Translations: [Unspecified abdominal pain] 06-25-2022 Episodic Acute bronchitis (4 sources) Acute bronchitis; Translations: [Acute bronchitis, unspecified] Episodic Other upper respiratory infections (6 sources) Streptococcal sore throat; Translations: [Streptococcal pharyngitis] Onset: 05-04-2024 08-10-2022 Episodic Past or Other Problems Problem Classification Problem Date Documented Da te Episodic/Chronic Conditions associated with dizziness or vertigo (1 source) Dizziness and giddiness; Translations: [Dizziness and giddiness] Onset: 01-19-2024 Episodic Unclassified (2 sources) child 01-09-2022 Results Test Name Value Interpretation Reference Range Facility Chest PA and Lateralon 04-13 Chest PA and Lateral [facility] Imaging Services [address] [place], [place] [id number] Chest PA and Lateral MR#: [id number] Acct: [id number] Name: JUDITH STANFORD Rep #: [id number] : 1975 F 48 From: Jordy Morales PCP: Dr. Vernon Marks MD Status: REG CLI Study: Chest PA and Lateral Date of Exam: 04/13/24 Exam# [id number] Ordering Dr: Chiki Jimenez [id number] INDICATION: wheezing EXAMINATION/TECHNIQUE : X-RAY - XR Chest 2 Views COMPARISON: Prior study dated: 01/05/2024 __ FINDINGS: LINES/DEVICES: None. LUNGS: Linear atelectatic changes in the lingula new since previous exam. No evidence of pleural effusions. MEDIASTINUM AND CARDIOVASCULAR STRUCTURES: Cardiac silhouette not enlarged. Central airways and mediastinal contour are unremarkable. BONES AND SOFT TISSUES: Unremarkable. RAD/Chest PA and Lateral IMPRESSION: Atelectatic changes in the lingula. Electronically Signed: Jordy Yost MD at 13:08 EDT , CC: Dr. Chiki Jimenez MD; Dr. Vernon Marks MD Carbide Tool Maker: Signed Normal [facility] Urgent Care Visit Reporton 1 Urgent Care Visit Report [facility] [address], [address] [place] [address] OFFICE VISIT Date of Service: 03/27/24 MR#: [id number] Acct: [id number] Name: JUDITH STANFORD Rep #: [id number] : 1975 Provider: LUIS A Crowley Age/Sex: 48/F Location: [facility] Status: Signed Intake Vital Signs 01/05/24 15:54 03/27/24 13:05 Height 5 ft 4 in 5 ft 4 in Weight: 253 lb 2 oz BMI 43.4 BP 118/60 Position Sitting Pulse 132 H Temp 98.3 F Temp Source Oral Pulse Oximetry (%) 95 Oxygen Delivery Method room air Intake Visit Reasons: SINUS COMPLAINT/CONGESTION Chief Complaint: Sore throat Accompanied by: Self Allergies Penicillins Allergy (Verified 03/27/24 13:05) Hives Sulfa (Sulfonamide Antibiotics) Allergy (Verified 03/27/24 13:05) Rash amoxicillin (From Augmentin) Adverse Reaction (Unknown, Verified 03/27/24 13:05) yeast infection clavulanic acid (From Augmentin) Adverse Reaction (Unknown, Verified 03/27/24 13:05) yeast infection Medications ???Medication ???Instructions ???Recorded ???Confirmed ???Type fluticasone propionate 50 1 spray NASAL BID 02/07/14 03/27/24 History mcg/actuation nasal spray,suspension cetirizine 10 mg capsule (Zyrtec) 10 mg PO QDAY 10/12/17 03/27/24 History montelukast 10 mg tablet 10 mg PO DAILY 10/12/17 03/27/24 History fluticasone furoate 200 1 inh inhalation DAILY 06/17/22 03/27/24 History mcg-vilanterol 25 mcg/dose inhalation powder (Breo Ellipta) albuterol sulfate 90 mcg/actuation 2 inh inhalation Q4H PRN shortness 01/05/24 03/27/24 History aerosol inhaler of breath or wheezing amlodipine 5 mg tablet 5 mg PO QHS 01/05/24 03/27/24 History azelastine 137 mcg (0.1 %) nasal 1 spray intranasal Q12H 01/05/24 03/27/24 History spray chlorpheniramine maleate 4 mg 4 mg PO QHS PRN allergy symptoms 01/05/24 03/27/24 History tablet (Aller-Chlor) ipratropium bromide 21 mcg (0.03 2 spray intranasal Q6H PRN 01/05/24 03/27/24 History %) nasal spray irbesartan 150 mg tablet 150 mg PO DAILY 01/05/24 03/27/24 History levalbuterol tartrate 45 1 - 2 puff inhalation Q4H 01/05/24 03/27/24 History mcg/actuation aerosol inhaler levofloxacin 500 mg tablet 500 mg PO DAILY 6 days #6 tabs 01/05/24 03/27/24 Rx multivitamin 1 tab PO DAILY 01/05/24 03/27/24 History omeprazole 20 mg capsule,delayed 20 mg PO DAILY 01/05/24 03/27/24 History release spironolactone 25 0.5 - 1 tab PO DAILY blood pressure 01/05/24 03/27/24 History mg-hydrochlorothiazid e 25 mg tablet turmeric 400 mg capsule 400 mg PO DAILY 01/05/24 03/27/24 History doxycycline hyclate 100 mg tablet 100 mg PO BID 7 days #14 tabs 03/27/24 03/27/24 Rx methylprednisolone 4 mg tablets in See Rx Instructions PO PER PKG DIR 03/27/24 03/27/24 Rx a dose pack (Medrol (Chirag)) #21 tabs PFSH Medical History Acute bronchitis, unspecified child Asthma Migraines Hay fever Fatigue SOB (shortness of breath) HTN (hypertension) Social History Smoking Status: Never smoker alcohol intake: never HPI HPI Chief Complaint: Sore throat Details: JUDITH MARINELLI, is a 48 F who presents to the office today for cough ,congestion, and sinus pressure. Patient states it started about 2 weeks ago with a sinus infection and then has moved to her chest. Patient has wheezing, chest congestion, cough, sinus pressure, nasal congestion, and rhinitis but denies SOB and dyspnea. Patient states that she is currently being managed for asthma with Breo Ellipta and PRN albuterol with minimal improvement. Patient is currently not utilizing any other treatment for this issue. Patient denies contact with other individuals with similar symptoms prior to symptom onset. ROS Const Constitutional: Positive for headache(s); No chills, fever(s) or weakness Eyes Eyes: No irritation, discharge or eye pain ENT ENT: Positive for nasal congestion, sinus pressure, sinus pain, nasal discharge and headache(s); No ear or mastoid pain or sore throat Resp Respiratory: Positive for cough, chest congestion and wheezing; No excessive phlegm production or shortness of breath Cardio Cardiology: No chest pain at rest, chest pain with exertion, dyspnea on exertion, irregular heart rhythm or palpitations Neuro Neurology: Positive for headache(s); No dizziness, weakness or tremor(s) Aller/Imm Allergy/Immunologic: Positive for wheezing; No seasonal allergy symptoms Exam Const General: cooperative and no acute distress HENMT Ears: external ears normal and TM's normal bilaterally Nose: mucous membranes and turbinates abnormal erythematous bilaterally and nasal discharge purulent Face and sinus: si (more content not included)... Normal [facility] 12 Lead EKGon 01-05-2024 12 Lead EKG [facility] Cardiovascular Services [address] [place] [address] 12 Lead EKG 01/05/24 1603 MR#: [id number] Acct: [id number] Name: JUDITH STANFORD Rep #: [id number] : 1975 48 From: Jaya Gilmore MD Attending Dr: Status: DEP ER Ordering Dr: Jeremy Henry MD Date: 01/05/24 Location: ED Sex: F C Admitted: Test Reason : Blood Pressure : / mmHG Vent. Rate : 120 BPM Atrial Rate : 120 BPM P-R Int : 144 ms QRS Dur : 076 ms QT Int : 432 ms P-R-T Axes : -15 020 044 degrees QTc Int : 610 ms Critical Test Result: Long QTc Sinus tachycardia Nonspecific ST and T wave abnormality Prolonged QT Abnormal ECG Confirmed by JERMAINE CLEMENT, JAYA ([id number]), field map editor YO SIU ([id number]) on 01/06/2024 8:36:33 AM Referred By: [email or web address] Confirmed By:JAYA GILMORE MD 01/06/24 0836 Date Jaya Gilmore MD CC: Dr. Vernon Marks MD; Dr. Jeremy Henry MD Signed Normal [facility] Basic Metabolic Profile (BMP )on 01-05-2024 BUN/CRE 8.7 RATIO Low 10-20 [facility] Comment on above: Performed By: #### L 500.2500, L100.0100 #### [facility] [address] [place], [address] CA,Total 9.4 mg/dL Normal 8.5-10.1 [facility] Comment on above: Performed By: #### L 500.2500, L100.0100 #### [facility] [address] [place], [address] Chloride [Moles/Vol] 103 mmol/L Normal 98-107 [facility] Comment on above: Performed By: #### L 500.2500, L100.0100 #### [facility] [address] [place], [address] CO2 [Moles/Vol] 28.0 mmol/L Normal 21.0-32.0 [facility] Comment on above: Performed By: #### L 500.2500, L100.0100 #### [facility] [address] [place], [address] Creatinine [Mass/Vol] 1.38 mg/dL High 0.55-1.02 [facility] Comment on above: Result Comment: The validity of the calculated GFR GFRAA in patients over 70 years has not been determined. Clinical correlation is essential. Performed By: #### L 500.2500, L100.0100 #### [facility] [address] [place], [address] ECRCL 61.82 ml/min Normal [facility] Comment on above: Performed By: #### L 500.2500, L100.0100 #### [facility] [address] [place], [address] EST GFR - AA 52 mL/min Low >60 [facility] Comment on above: Result Comment: Afri can Micronesian GFR Calc Performed By: #### L 500.2500, L100.0100 #### [facility] [address] [place], [address] GAP 5 Normal 5-15 [facility] Comment on above: Performed By: #### L 500.2500, L100.0100 #### [facility] [address] [place], [address] GFR/1.73 sq M.predicted among non-blacks MDRD (S/P/Bld) [Vol rate/Area] 43 mL/min/{1.73_m2} Low >60 [facility] Comment on above: Result Comment: Non- GFR Calc Performed By: #### L 500.2500, L100.0100 #### [facility] [address] [place], [address] Glucose [Mass/Vol] 117 mg/dL High 74-106 [facility] Comment on above: Result Comment: Fast ing Glucose result from 100 to 125 mg/dL suggests IMPAIRED HOMEOSTASIS per A.D.A. criteria. Performed By: #### L 500.2500, L100.0100 #### [facility] [address] [place], [address] Potassium [Moles/Vol] 3.4 mmol/L Low 3.5-5.1 [facility] Comment on above: Performed By: #### L 500.2500, L100.0100 #### [facility] [address] [place], [address] Sodium [Moles/Vol] 136 mmol/L Normal 136-145 [facility] Comment on above: Performed By: #### L 500.2500, L100.0100 #### [facility] [address] [place], [address] Urea nitrogen [Mass/Vol] 12 mg/dL Normal 7-18 [facility] Comment on above: Performed By: #### L 500.2500, L100.0100 #### [facility] [address] [place], [address] Brain/Head without Contrasto n 01-05-2024 Brain/Head without Contrast [facility] Imaging Services [address] [place] [address] Brain/Head without Contrast MR#: [id number] Acct: [id number] Name: JUDITH STANFORD Rep #: [id number] : 1975 F 48 From: Luis Vaca MD PCP: Dr. Vernon Marks MD Status: REG ER Study: Brain/Head without Contrast Date of Exam: 12/15 08/09 Exam# [id number] Ordering Dr: Jeremy Henry MD [id number] STUDY: CT BRAIN WITHOUT CONTRAST REASON FOR EXAM: Female, 48 years old. DIZZINESS RADIATION DOSAGE (If Supplied By Facility): CTDIvol = ( 44.99 ) mGy, DLP = ( 829.85 ) mGycm TECHNIQUE: Transaxial CT imaging of the brain was performed without administration of intravenous contrast material. Individualized dose optimization techniques were used for this CT. COMPARISON: No relevant priors. FINDINGS: Normal soft tissue structures. Normal calvarium. Normal size ventricles and extra-axial spaces for the patient''s age. There is focal chronic appearing volume loss of the left parieto-occipital region. Normal basal ganglia and thalami. Normal brainstem. Normal cerebellum. There is no intracranial hemorrhage. There are no findings of an acute ischemic infarction. There is mucosal retention cyst or polyp left maxillary sinus. CT/Brain/Head without Contrast IMPRESSION: Chronic involutional changes of the brain. Consider MRI for further evaluation. Electronically Signed: Luis Vaca MD at 19:00 EDT Reading Location ID and State: [address] [place] [address] , Service support , CC: Dr. Vernon Marks MD; Dr. Jeremy Henry MD Carbide Tool Maker: Signed Normal [facility] CBC W/Diff, Automatedon 07-2 Absolute Lymph 3.34 X10 3/uL Normal 0.83-4.51 [facility] Comment on above: Performed By: #### L 500.2500, L100.0100 #### [facility] [address] [place], [address] Absolute Neut 6.6 X10 3/uL Normal 2.0-7.7 [facility] Comment on above: Performed By: #### L 500.2500, L100.0100 #### [facility] [address] [place], [address] Basophils/100 WBC (Bld) 0.4 % Normal 0-1 [facility] Comment on above: Performed By: #### L 500.2500, L100.0100 #### [facility] [address] [place], [address] Eosinophils/100 WBC (Bld) 2.6 % Normal 0-5 [facility] Comment on above: Performed By: #### L 500.2500, L100.0100 #### [facility] [address] [place], [address] Erythrocyte distribution width (RBC) [Ratio] 12.2 % Normal 11.6-14.6 [facility] Comment on above: Performed By: #### L 500.2500, L100.0100 #### [facility] [address] [place], [address] Hematocrit (Bld) [Volume fraction] 50.0 % High 37-47 [facility] Comment on above: Performed By: #### L 500.2500, L100.0100 #### [facility] [address] [place], [address] Hemoglobin (Bld) [Mass/Vol] 16.9 g/dL High 12.0-15.0 [facility] Comment on above: Performed By: #### L 500.2500, L100.0100 #### [facility] [address] [place], [address] IG% 0.200 Normal 0.0-0.9 [facility] Comment on above: Result Comment: IG% - Immature Granulocytes (promyelocytes, myelocytes and metamyelocytes) > 1% indicates that a LEFT SHIFT is Present. Performed By: #### L 500.2500, L100.0100 #### [facility] [address] [place], [address] Lymphocytes/100 WBC (Bld) 30.4 % Normal 19-41 [facility] Comment on above: Performed By: #### L 500.2500, L100.0100 #### [facility] [address] [place], [address] MCH (RBC) [Entitic mass] 28.9 pg Normal 27.0-32.0 [facility] Comment on above: Performed By: #### L 500.2500, L100.0100 #### [facility] [address] [place], [address] MCHC (RBC) [Mass/Vol] 33.8 g/dL Normal 32-36 [facility] Comment on above: Performed By: #### L 500.2500, L100.0100 #### [facility] [address] [place], [address] MCV (RBC) [Entitic vol] 85.6 fL Normal 81-99 [facility] Comment on above: Performed By: #### L 500.2500, L100.0100 #### [facility] [address] [place], [address] Monocytes/100 WBC (Bld) 6.3 % Normal 0-10 [facility] Comment on above: Performed By: #### L 500.2500, L100.0100 #### [facility] [address] [place], [address] Neutrophils/100 WBC (Bld) 60.1 % Normal 47-70 [facility] Comment on above: Performed By: #### L 500.2500, L100.0100 #### [facility] [address] [place], [address] Nucleated RBC (Bld) [#/Vol] 0 10*3/uL Normal 0-5 [facility] Comment on above: Performed By: #### L 500.2500, L100.0100 #### [facility] [address] [place], [address] Platelet mean volume (Bld) [Entitic vol] 10.0 fL Normal 6.2-12.0 [facility] Comment on above: Performed By: #### L 500.2500, L100.0100 #### [facility] [address] [place], [address] Platelets (Bld) [#/Vol] 324 10*3/uL Normal 150-450 [facility] Comment on above: Performed By: #### L 500.2500, L100.0100 #### [facility] [address] [place], [address] RBC (Bld) [#/Vol] 5.84 10*6/uL High 4.2-5.4 [facility] Comment on above: Performed By: #### L 500.2500, L100.0100 #### [facility] [address] [place], [address] RDW SD 38.0 fl Normal 35.1-43.9 [facility] Comment on above: Performed By: #### L 500.2500, L100.0100 #### [facility] [address] [place], [address] WBC (Bld) [#/Vol] 11.0 10*3/uL Normal 4.4-11.0 [facility] Comment on above: Performed By: #### L 500.2500, L100.0100 #### [facility] [address] [place], [address] Chest PA and Lateralon 01-04 Chest PA and Lateral [facility] Imaging Services [address] [place] [address] Chest PA and Lateral MR#: [id number] Acct: [id number] Name: JUDITH STANFORD Rep #: [id number] : 1975 F 48 From: Luis Vaca MD PCP: Dr. Vernon Marks MD Status: [facility] ER Study: Chest PA and Lateral Date of Exam: 01/05/24 Exam# [id number] Ordering Dr: Jeremy Henry MD [id number] STUDY: X-RAY CHEST REASON FOR EXAM: Female, 48 years old. TACHYCARDIA TECHNIQUE: PA and lateral views of the chest. COMPARISON: July 21, 2018 FINDINGS: There are monitoring devices. There are mild lower lung interstitial increased opacities. There is no demonstrated pleural abnormality. Normal size heart. Normal mediastinum and carmenza. Normal visualized pulmonary arteries. Normal visualized aortic arch and descending thoracic aorta. There is a dextroscoliosis of the thoracic spine. Normal visualized ribs, clavicles, and shoulders. There is no demonstrated abnormality of the visualized soft tissue structures of the upper abdomen. RAD/Chest PA and Lateral IMPRESSION: Mild lower lung interstitial edema or infiltrates. Electronically Signed: Luis Vaca MD at 19:01 EDT , CC: Dr. Vernon Marks MD; Dr. Jeremy Henry MD Carbide Tool Maker: Signed Normal [facility] Emergency Department Summary on 01-05-2024 Emergency Department Summary [facility] Medical Records Department [address] [place] [address] Emergency Department Summary 01/05/24 MR#: [id number] Acct: [id number] Name: JUDITH STANFORD Rep #: [id number] : 1975 48 From: Jeremy Henry MD PCP: Dr. Vernon Marks MD Status:DEP ER Location: ED HPI History of Present Illness Chief Complaint: Dizziness Informant: patient Onset/Context/Timing Onset: Days Context: Gradual Onset Timing: Intermittent Current Severity: Mild Maximum Severity: Mild Narrative Narrative: 48-year-old female history of hypertension prior vertigo and asthma. Says she has had intermittent dizziness with accelerated heart rate the last several days. Said the dizziness comes in waves. As she feels off balance. She denies any weakness to her arms or legs. No headache. No head trauma. No history of stroke or mini stroke. That she is better she is flat. It does not change with head movement. She denies any chest pain or shortness of breath. She denies any fever or chills. She denies any vomiting or diarrhea. No dysuria. No changes in her bowel movements or her urination. Saw her primary care physician today you are seen in the emergency department. Prior similar symptoms: No Recent Illness/Hospitalizati on: No PFSH [facility] Medical History Acute bronchitis, unspecified child Asthma Migraines Hay fever Fatigue SOB (shortness of breath) HTN (hypertension) Home Medications ???Medication ???Instructions ???Recorded ???Last Taken ???Type fluticasone propionate 50 1 spray NASAL BID 02/07/14 Unknown History mcg/actuation nasal spray,suspension cetirizine 10 mg capsule (Zyrtec) 10 mg PO QDAY 10/12/17 Unknown History montelukast 10 mg tablet 10 mg PO DAILY 10/12/17 Unknown History fluticasone furoate 200 1 inh inhalation DAILY 06/17/22 Unknown History mcg-vilanterol 25 mcg/dose inhalation powder (Breo Ellipta) albuterol sulfate 90 mcg/actuation 2 inh inhalation Q4H PRN shortness 01/05/24 Unknown History aerosol inhaler of breath or wheezing amlodipine 5 mg tablet 5 mg PO QHS 01/05/24 Unknown History azelastine 137 mcg (0.1 %) nasal 1 spray intranasal Q12H 01/05/24 Unknown History spray chlorpheniramine maleate 4 mg 4 mg PO QHS PRN allergy symptoms 01/05/24 Unknown History tablet (Aller-Chlor) ipratropium bromide 21 mcg (0.03 2 spray intranasal Q6H PRN 01/05/24 Unknown History %) nasal spray irbesartan 150 mg tablet 150 mg PO DAILY 01/05/24 Unknown History levalbuterol tartrate 45 1 - 2 puff inhalation Q4H 01/05/24 Unknown History mcg/actuation aerosol inhaler levofloxacin 500 mg tablet 500 mg PO DAILY 6 days #6 tabs 01/05/24 Unknown Rx multivitamin 1 tab PO DAILY 01/05/24 Unknown History omeprazole 20 mg capsule,delayed 20 mg PO DAILY 01/05/24 Unknown History release spironolactone 25 0.5 - 1 tab PO DAILY blood pressure 01/05/24 Unknown History mg-hydrochlorothiazid e 25 mg tablet turmeric 400 mg capsule 400 mg PO DAILY 01/05/24 Unknown History Allergy/AdvReac Type Severity Reaction Status Date / Time Penicillins Allergy Hives Verified 01/05/24 15:52 Sulfa (Sulfonamide Allergy Rash Verified 01/05/24 15:52 Antibiotics) amoxicillin (From Augmentin) AdvReac Unknown yeast Verified 01/05/24 15:52 infection clavulanic acid (From AdvReac Unknown yeast Verified 01/05/24 15:52 Augmentin) infection Family History no significant family his Social History Smoking Status: Never smoker alcohol intake: never ROS ROS ED ROS Narrative Dizziness. Accelerated heart rate. Nausea. No chest pain. No fever. No vomiting or diarrhea. Review of Systems ROS Unobtainable: Denies due to encephalopathy Constitutional Constitutional ED: Denies chills or fever(s) Eyes Eyes: Denies blurry vision ENT ENT ED: Denies ear pain Cardiovascular Cardiovascular: Reports palpitations and racing heartbeat; Denies chest pain Respiratory/Chest Respiratory/Chest: Denies cough or dyspnea Gastrointestinal Gastrointestinal: Reports nausea; Denies abdominal pain, constipation, diarrhea, melena or vomiting Genitourinary Genitourinary ED: Denies dysuria or hematuria Integumentary Denies abscess Psychiatric Psychiatric: Denies anxiety or depression Hematologic/Lymphatic Hematologic/Lymphatic : Reports none Allergic/Immunologic Allergic/Immunologic ED: Denies mouth swelling, tongue swelling or urticaria EXAM Physical Exam Narrative Exam Narrative: Well-appearing 40-year-old female. Vital signs are stable except her blood pressure is elevated at 170/121 her heart rate is 128 sinus rhythm. Pulse ox 90% on room air no hypoxia. Her temperature is 97.1. She does not look septic or toxic (more content not included)... Normal [facility] Urgent Care Visit Reporton 0 08-25-2023 Urgent Care Visit Report [facility] [address], [address] [place] [address] OFFICE VISIT Date of Service: 08/25/23 MR#: [id number] Acct: [id number] Name: JUDITH STANFORD Rep #: [id number] : 1975 Provider: LUIS A De La Paz Age/Sex: 48/F Location: [facility] Status: Signed Intake Vital Signs 06/17/22 10:13 08/25/23 11:06 Height 5 ft 4 in BP 132/82 H Blood Pressure Location Lt brachial Position Sitting Respiration 12 Pulse 118 H Pulse Source Monitor Temp 98.4 F Temp Source Temporal Pulse Oximetry (%) 97 Oxygen Delivery Method room air Intake Visit Reasons: SINUS PRESSURE/GARCIA/COUGH Chief Complaint: Sore throat Allergies Penicillins Allergy (Verified 08/25/23 11:07) Hives Sulfa (Sulfonamide Antibiotics) Allergy (Verified 08/25/23 11:07) Rash amoxicillin [From Augmentin] Adverse Reaction (Unknown, Verified 08/25/23 11:07) yeast infection clavulanic acid [From Augmentin] Adverse Reaction (Unknown, Verified 08/25/23 11:07) yeast infection [facility] Medical History Acute bronchitis, unspecified Asthma child Fatigue Hay fever HTN (hypertension) Migraines SOB (shortness of breath) Social History Smoking Status: Never smoker alcohol intake: never HPI HPI Chief Complaint: Sore throat Details: JUDITH MARINELLI, is a 48 F who presents to the office today for initial evaluation at the [facility] for approximately 1-1/2-week history of progressively worsening facial pressure/congestion with purulent postnasal drip/cough and bilateral ear pressure. No complaints of fever, chills, myalgias, fatigue, runny nose, or nausea/vomiting/diarr hea. Nonsmoker. No complaints of chest pain/shortness of breath/dyspnea on exertion. No close contacts with similar complaints. No other associated symptoms and no other alleviating/aggravati ng factors. ROS Const Constitutional: No other (as above) Exam Const General: cooperative, healthy appearing and no acute distress Orientation: alert, awake and oriented x3 HENMT Head: normal to inspection Ears: hearing grossly normal bilaterally, external ears normal, TM's normal bilaterally and EAC's normal Nose: external nose normal, nares normal, septum normal and no nasal discharge Face and sinus: normal facial exam, sinuses tender maxillary(w/ bilateral maxillary fullness to palpation) and face symmetric Mouth: oral mucosae normal, lip normal, tongue normal and oropharynx normal Throat: posterior oropharynx normal, tonsils normal, uvula midline and postnasal drainage (Purulent) Eyes General: appearance normal, both eyes and all related structures Neck Neck: normal visual inspection, full ROM, no meningeal signs, supple and lymphadenopathy (Bilateral anterior cervical lymph node swelling/tender to palpation) Neck mass: No Thyroid: thyroid normal Chest Chest palpation inspection: normal inspection of the chest Resp Effort Inspection: normal respiratory effort and able to speak in complete sentences Auscultation: Bilateral: Clear to Auscultation Cardio Palpation: normal PMI Rate: Tachycardic Rhythm: regular rhythm Heart Sounds: S1 normal, S2 normal, no gallops, no murmurs and no rubs Pulses: radial pulses present GI Inspection: normal to inspection Skin General: no rashes or lesions noted Neuro General: patient alert, patient awake and patient oriented x3 Cognition: normal cognition Speech: speech normal Psych Appearance: grossly normal Mental Status: mental status grossly normal Mood: congruent mood Affect: normal affect Speech and Movement: speech and movement normal Attitude: cooperative Diagnoses Acute maxillary sinusitis, unspecified J01.00 Assessment and Plan Assessment and Plan (1) Acute maxillary sinusitis, unspecified: Status: Acute Plan: Doxycycline as prescribed today. Supportive measures as instructed today. Work excuse provided at patient request. Follow-up with PCP in 3 to 5 days should symptoms not improve, sooner should symptoms worsen or any other concerns develop. Patient states acknowledging understanding all the above Coding Level of Care Code Off vis,est,level 3 08/25/23 1121 Date Magan Nava Signature: Date (if applicable) CC: Normal [facility] Basophil percentageOrdered B y: Vernon Marks on 2023 Bilirubin [Mass/Vol] 1.60 mg/dL 0.20-1.00 [facility] Comment on above: For patients on eltr ombopag therapy, use of Dimension [place] TBIL is not recommended. Chloride [Moles/Vol] 108 mmol/L 98-107 [facility] Cholesterol [Mass/Vol] 171 mg/dL <200 [facility] Comment on above: <200 mg/dL Desirable 200-240 mg/dL Borderline >240 mg/dL High Risk Glucose [Mass/Vol] 91 mg/dL 74-106 [facility] Potassium [Moles/Vol] 3.8 mmol/L 3.5-5.1 [facility] Protein [Mass/Vol] 8.2 g/dL 6.4-8.2 [facility] Sodium [Moles/Vol] 139 mmol/L 136-145 [facility] Triglyceride [Mass/Vol] 244 mg/dL <199 [facility] Comment on above: The drugs N-Acetylcy steine and Metamizole may falsely depress this assay.Serum Triglycerides Reference Interval Normal <150 mg/dL Borderline high 150 - 199 mg/dL High 200 - 499 mg/dL Very High > or = 500 mg/dL Comprehensive Metabolic Prof ilon 2023 Albumin [Mass/Vol] 3.7 g/dL Normal 3.2-5.0 [facility] Comment on above: Performed By: #### L 500.4050, L501.9926, L502.0250, L500.4100 ####[facility] [address] [place], [address] Albumin/Globulin [Mass ratio] 0.8 {ratio} Low 0.9-2.4 [facility] Comment on above: Performed By: #### L 500.4050, L501.9985, L502.0250, L500.4100 ####[facility] [address] [place], [address] ALK P 98 U/L Normal 45-117 [facility] Comment on above: Performed By: #### L 500.4050, L501.9985, L502.0250, L500.4100 ####[facility] [address] [place], [address] ALT [Catalytic activity/Vol] 23 U/L Normal 13-56 [facility] Comment on above: Performed By: #### L 500.4050, L501.9985, L502.0250, L500.4100 ####[facility] [address] [place], [address] AST [Catalytic activity/Vol] 25 U/L Normal 15-37 [facility] Comment on above: Performed By: #### L 500.4050, L501.9985, L502.0250, L500.4100 ####[facility] [address] [place], [address] Bilirubin [Mass/Vol] 1.60 mg/dL High 0.20-1.00 [facility] Comment on above: Result Comment: For patients on eltrombopag therapy, use of Dimension [place] TBIL is not recommended. Performed By: #### L 500.4050, L501.9985, L502.0250, L500.4100 ####[facility] [address] [place], [address] BUN/CRE 13.9 RATIO Normal 10-20 [facility] Comment on above: Performed By: #### L 500.4050, L501.9985, L502.0250, L500.4100 ####[facility] [address] [place], [address] CA,Total 9.5 mg/dL Normal 8.5-10.1 [facility] Comment on above: Performed By: #### L 500.4050, L501.9985, L502.0250, L500.4100 ####[facility] [address] [place], [address] Chloride [Moles/Vol] 108 mmol/L High 98-107 [facility] Comment on above: Performed By: #### L 500.4050, L501.9985, L502.0250, L500.4100 ####[facility] [address] [place], [address] CO2 [Moles/Vol] 26.0 mmol/L Normal 21.0-32.0 [facility] Comment on above: Performed By: #### L 500.4050, L501.9985, L502.0250, L500.4100 ####[facility] [address] [place], [address] Creatinine [Mass/Vol] 0.79 mg/dL Normal 0.55-1.02 [facility] Comment on above: Result Comment: The validity of the calculated GFR GFRAA in patients over 70 years has not been determined. Clinical correlation is essential. Performed By: #### L 500.4050, L501.9985, L502.0250, L500.4100 ####[facility] [address] [place], [address] EST GFR - AA 100 mL/min Normal >60 [facility] Comment on above: Result Comment: Afri can Micronesian GFR Calc Performed By: #### L 500.4050, L501.9985, L502.0250, L500.4100 ####[facility] [address] [place], [address] GAP 5 Normal 5-15 [facility] Comment on above: Performed By: #### L 500.4050, L501.9985, L502.0250, L500.4100 ####[facility] [address] [place], [address] GFR/1.73 sq M.predicted among non-blacks MDRD (S/P/Bld) [Vol rate/Area] 82 mL/min/{1.73_m2} Normal >60 [facility] Comment on above: Result Comment: Non- GFR Calc Performed By: #### L 500.4050, L501.9985, L502.0250, L500.4100 ####[facility] [address] [place], [address] Globulin (S) [Mass/Vol] 4.5 g/dL High 2.2-4.2 [facility] Comment on above: Performed By: #### L 500.4050, L501.9985, L502.0250, L500.4100 ####[facility] [address] [place], [address] Glucose [Mass/Vol] 91 mg/dL Normal 74-106 [facility] Comment on above: Performed By: #### L 500.4050, L501.9985, L502.0250, L500.4100 ####[facility] [address] [place], [address] Potassium [Moles/Vol] 3.8 mmol/L Normal 3.5-5.1 [facility] Comment on above: Performed By: #### L 500.4050, L501.9985, L502.0250, L500.4100 ####[facility] [address] [place], [address] Sodium [Moles/Vol] 139 mmol/L Normal 136-145 [facility] Comment on above: Performed By: #### L 500.4050, L501.9985, L502.0250, L500.4100 ####[facility] [address] [place], [address] T PROT 8.2 g/dL Normal 6.4-8.2 [facility] Comment on above: Performed By: #### L 500.4050, L501.9985, L502.0250, L500.4100 ####[facility] [address] [place], [address] Urea nitrogen [Mass/Vol] 11 mg/dL Normal 7-18 [facility] Comment on above: Performed By: #### L 500.4050, L501.9985, L502.0250, L500.4100 ####[facility] [address] [place], [address] Hemoglobin A1con 2023 HbA1c (Bld) [Mass fraction] 5.2 % Normal 3.8-5.6 [facility] Comment on above: Result Comment: Norm al < 5.7 % Prediabetic 5.7 - 6.4 % Diabetic >or= 6.5 % Please note range changes. Performed By: #### L 500.4050, L501.9985, L502.0250, L500.4100 #### [facility] [address] [place], [address] Laboratory - Chemistry and C hemistry - challengeOrdered By: Vernon Marks on 2023 Albumin/Globulin [Mass ratio] 0.8 {ratio} 0.9-2.4 [facility] ALP [Catalytic activity/Vol] 98 U/L 45-117 [facility] ALT [Catalytic activity/Vol] 23 U/L 13-56 [facility] Cholesterol in HDL [Mass/Vol] 43 mg/dL >40 [facility] Comment on above: The drugs N-Acetylcy steine and Metamizole may falsely depress this assay. Reference Range HDL <40 mg/dL Low HDL Cholesterol HDL >or= 60 mg/dL High HDL Cholesterol Cholesterol in LDL [Mass/Vol] 79 mg/dL 0-130 [facility] CO2 [Moles/Vol] 26.0 mmol/L 21.0-32.0 [facility] Globulin (S) [Mass/Vol] 4.5 g/dL 2.2-4.2 [facility] Urea nitrogen/Creatinine [Mass ratio] 13.9 mg/mg 10-20 [facility] Lipid Profileon 2023 Cholesterol [Mass/Vol] 171 mg/dL Normal 200 [facility] Comment on above: Result Comment: <200 mg/dL Desirable 200-240 mg/dL Borderline >240 mg/dL High Risk Performed By: #### L 500.4050, L501.9985, L502.0250, L500.4100 ####[facility] [address] [place], [address] Cholesterol in HDL [Mass/Vol] 43 mg/dL Normal [facility] Comment on above: Result Comment: The drugs N-Acetylcysteine and Metamizole may falsely depress this assay. Reference Range HDL <40 mg/dL Low HDL Cholesterol HDL >or= 60 mg/dL High HDL Cholesterol Performed By: #### L 500.4050, L501.9985, L502.0250, L500.4100 ####[facility] [address] [place], [address] Cholesterol in LDL [Mass/Vol] 79 mg/dL Normal 0-130 [facility] Comment on above: Performed By: #### L 500.4050, L501.9985, L502.0250, L500.4100 ####[facility] [address] [place], [address] Cholesterol in VLDL [Mass/Vol] 49 mg/dL High 5-40 [facility] Comment on above: Performed By: #### L 500.4050, L501.9985, L502.0250, L500.4100 ####[facility] [address] [place], [address] Triglyceride [Mass/Vol] 244 mg/dL High [facility] Comment on above: Result Comment: The drugs N-Acetylcysteine and Metamizole may falsely depress this assay. Serum Triglycerides Reference Interval Normal <150 mg/dL Borderline high 150 - 199 mg/dL High 200 - 499 mg/dL Very High > or = 500 mg/dL Performed By: #### L 500.4050, L501.9985, L502.0250, L500.4100 ####[facility] [address] [place], [address] Microalb:Creat Ratio,Random URon 2023 Creatinine [Mass/Vol] 143.00 mg/dL Normal NO RANGE EST . [facility] Comment on above: Performed By: #### L 500.4050, L501.9985, L502.0250, L500.4100 #### [facility] [address] [place], [address] MALB:CRE 5.0 mg/g CRE Normal <30 mg/g CRE [facility] Comment on above: Performed By: #### L 500.4050, L501.9985, L502.0250, L500.4100 #### [facility] [address] [place], [address] MICROALBUMIN,UR 7.1 mg/L Normal NO RANGE EST. [facility] Comment on above: Performed By: #### L 500.4050, L501.9985, L502.0250, L500.4100 #### [facility] [address] [place], [address] No Panel InformationOrdered By: Vernon Marks on 2023 Estimated GFR (MDRD) Amer 100 mL/min >60 [facility] Comment on above: GFR Calc Estimated GFR (MDRD) Non-Af Amer 82 mL/min >60 [facility] Comment on above: Non- GFR Calc Urine Microalbumin/Creatinine Ratio 5.0 mg/g CRE <30 [facility] VLDL Cholesterol 49 mg/dL 5-40 [facility] Serum or plasma calcium deana urement (mass/volume)Ordered By: Vernon Marks on 2023 Calcium [Mass/Vol] 9.5 mg/dL 8.5-10.1 [facility] Serum or plasma creatinine m easurement (mass/volume)Ordered By: Vernon Marks on 2023 Creatinine [Mass/Vol] 0.79 mg/dL 0.55-1.02 [facility] Comment on above: The validity of the calculated GFR & GFRAA in patients over 70 years has not been determined. Clinical correlation is essential. Serum or plasma urea nitroge n measurement (mass/volume)Ordered By: Vernon Marks on 2023 Urea nitrogen [Mass/Vol] 11 mg/dL 7-18 [facility] Thin prep Papanicolaou smear with manual screeningOrdered By: Vernon Marks on 2023 Thin prep Papanicolaou smear with manual screening 3.7 g/dL 3.2-5.0 [facility] Thin prep Papanicolaou smear with manual screening 25 U/L 15-37 [facility] Thin prep Papanicolaou smear with manual screening 5 5-15 [facility] Thin prep Papanicolaou smear with manual screening 7.1 mg/L NO RANGE EST. [facility] Urine creatinine measurement (mass/volume)Ordered By: Vernon Marks on 2023 Creatinine (U) [Mass/Vol] 143.00 mg/dL NO RANGE EST. [facility] Whole blood hemoglobin A1c/t otal hemoglobin ratio (mass fraction)Ordered By: Vernon Marks on 2023 HbA1c (Bld) [Mass fraction] 5.2 % 3.8-5.6 [facility] Comment on above: Normal < 5.7 % Predi abetic 5.7 - 6.4 % Diabetic >or= 6.5 % Please note range changes. Basophil percentageon 2021 Bilirubin [Mass/Vol] 1.00 mg/dL 0.20-1.00 [facility] Work Phone: Comment on above: For patients on eltr ombopag therapy, use of Dimension [place] TBIL is not recommended. Chloride [Moles/Vol] 106 mmol/L 98-[address] [facility] Work Phone: Glucose [Mass/Vol] 94 mg/dL 74-106 [facility] r [facility] Work Phone: [phone] Potassium [Moles/Vol] 4.2 mmol/L 3.5-5.1 [facility] Work Phone: [phone] Protein [Mass/Vol] 7.9 g/dL 6.4-8.2 [facility] Work Phone: [phone] Sodium [Moles/Vol] 139 mmol/L 136-145 [facility] Work Phone: Laboratory - Chemistry and C hemistry - challengeon 03-15-2022 ALP [Catalytic activity/Vol] 90 U/L 45-117 [facility] Work Phone: ALT [Catalytic activity/Vol] 26 U/L 13-56 [facility] Work Phone: CO2 [Moles/Vol] 28.0 mmol/L 21.0-32.0 [facility] Work Phone: Globulin (S) [Mass/Vol] 4.4 g/dL 2.2-4.2 [facility] Work Phone: Urea nitrogen/Creatinine [Mass ratio] 12.4 mg/mg 10-20 [facility] Work Phone: No Panel Informationon 03-15 Estimated GFR (MDRD) Amer 98 mL/min >60 [facility] Work Phone: Comment on above: GFR Calc Estimated GFR (MDRD) Non-Af Amer 81 mL/min >60 [facility] Work Phone: Comment on above: Non- GFR Calc Thyroid Stimulating Hormone (TSH) 0.73 uIU/mL 0.358-3.74 [facility] Work Phone: Urine Microalbumin/Creatinine Ratio TNP [facility] Work Phone: Comment on above: Test not performed Serum or plasma albumin deana urement (mass/volume)on 03-15-2022 Albumin [Mass/Vol] 3.5 g/dL 3.2-5.0 [facility] Work Phone: Serum or plasma albumin/glob ulin mass ratioon 03-15-2022 Albumin/Globulin [Mass ratio] 0.8 {ratio} 0.9-2.4 [facility] Work Phone: Serum or plasma calcium deana urement (mass/volume)on 03-15-2022 Calcium [Mass/Vol] 9.5 mg/dL 8.5-10.1 [facility] [facility] Work Phone: Serum or plasma creatinine m easurement (mass/volume)on 03-15-2022 Creatinine [Mass/Vol] 0.80 mg/dL 0.55-1.02 [facility] Work Phone: Comment on above: The validity of the calculated GFR & GFRAA in patients over 70 years has not been determined. Clinical correlation is essential. Serum or plasma urea nitroge n measurement (mass/volume)on 03-15-2022 Urea nitrogen [Mass/Vol] 10 mg/dL 7-18 [facility] Work Phone: Thin prep Papanicolaou smear with manual screeningon 03-15-2022 Thin prep Papanicolaou smear with manual screening 20 U/L 15-37 [facility] Work Phone: Thin prep Papanicolaou smear with manual screening 5 5-15 [facility] Work Phone: Thin prep Papanicolaou smear with manual screening < 5.0 mg/L NO RANGE EST. [facility] Work Phone: Urine creatinine measurement (mass/volume)on 03-15-2022 Creatinine (U) [Mass/Vol] 22.10 mg/dL NO RANGE EST. [facility] Work Phone: Basophil percentageon 2021 Bilirubin [Mass/Vol] 1.20 mg/dL 0.20-1.00 [facility] Work Phone: Comment on above: For patients on eltr ombopag therapy, use of Dimension [place] TBIL is not recommended. Chloride [Moles/Vol] 103 mmol/L 98-107 [facility] Work Phone: Cholesterol [Mass/Vol] 180 mg/dL <200 [facility] Work Phone: Comment on above: <200 mg/dL Desirable 200-240 mg/dL Borderline >240 mg/dL High Risk Glucose [Mass/Vol] 90 mg/dL 74-106 [facility] Work Phone: Potassium [Moles/Vol] 3.9 mmol/L 3.5-5.1 [facility] Work Phone: Protein [Mass/Vol] 8.1 g/dL 6.4-8.2 [facility] Work Phone: Sodium [Moles/Vol] 139 mmol/L 136-145 [facility] Work Phone: Triglyceride [Mass/Vol] 253 mg/dL <199 [facility] Work Phone: Comment on above: The drugs N-Acetylcy steine and Metamizole may falsely depress this assay.Serum Triglycerides Reference Interval Normal <150 mg/dL Borderline high 150 - 199 mg/dL High 200 - 499 mg/dL Very High > or = 500 mg/dL Laboratory - Chemistry and C hemistry - challengeon 12-13-2021 ALP [Catalytic activity/Vol] 96 U/L 45-117 [facility] Work Phone: ALT [Catalytic activity/Vol] 27 U/L 13-56 [facility] Work Phone: CO2 [Moles/Vol] 28.0 mmol/L 21.0-32.0 [facility] Work Phone: Globulin (S) [Mass/Vol] 4.6 g/dL 2.2-4.2 [facility] Work Phone: Urea nitrogen/Creatinine [Mass ratio] 13.5 mg/mg 10-20 [facility] Work Phone: No Panel Informationon 12-13 Estimated GFR (MDRD) Amer 109 mL/min >60 [facility] Work Phone: Comment on above: GFR Calc Estimated GFR (MDRD) Non-Af Amer 90 mL/min >60 [facility] Work Phone: Comment on above: Non- GFR Calc Urine Microalbumin/Creatinine Ratio TNP [facility] Work Phone: Comment on above: Test not performed Serum or plasma albumin deana urement (mass/volume)on 12-13-2021 Albumin [Mass/Vol] 3.5 g/dL 3.2-5.0 [facility] Work Phone: Serum or plasma albumin/glob ulin mass ratioon 12-13-2021 Albumin/Globulin [Mass ratio] 0.8 {ratio} 0.9-2.4 [facility] Work Phone: Serum or plasma calcium deana urement (mass/volume)on 12-13-2021 Calcium [Mass/Vol] 9.3 mg/dL 8.5-10.1 [facility] Work Phone: Serum or plasma cholesterol in HDL measurement (mass/volume)on 12-13-2021 Cholesterol in HDL [Mass/Vol] 43 mg/dL >40 [facility] Work Phone: Comment on above: The drugs N-Acetylcy steine and Metamizole may falsely depress this assay. Reference Range HDL <40 mg/dL Low HDL Cholesterol HDL >or= 60 mg/dL High HDL Cholesterol Serum or plasma cholesterol in VLDL measurement (mass/volume)on 12-13-2021 Cholesterol in VLDL [Mass/Vol] 51 mg/dL 5-40 [facility] Work Phone: Serum or plasma creatinine m easurement (mass/volume)on 12-13-2021 Creatinine [Mass/Vol] 0.74 mg/dL 0.55-1.02 [facility] Work Phone: Comment on above: The validity of the calculated GFR & GFRAA in patients over 70 years has not been determined. Clinical correlation is essential. Serum or plasma low density lipoprotein (LDL) cholesterol measurement (mass/volume)on 12-13-2021 Cholesterol in LDL [Mass/Vol] 86 mg/dL 0-130 [facility] Work Phone: Serum or plasma urea nitroge n measurement (mass/volume)on 12-13-2021 Urea nitrogen [Mass/Vol] 10 mg/dL 7-18 [facility] Work Phone: Thin prep Papanicolaou smear with manual screeningon 12-13-2021 Thin prep Papanicolaou smear with manual screening 19 U/L 15-37 [facility] Work Phone: Thin prep Papanicolaou smear with manual screening 8 5-15 [facility] Work Phone: Thin prep Papanicolaou smear with manual screening < 5.0 mg/L NO RANGE EST. [facility] Work Phone: Urine creatinine measurement (mass/volume)on 12-13-2021 Creatinine (U) [Mass/Vol] 27.00 mg/dL NO RANGE EST. [facility] Work Phone: Whole blood hemoglobin A1c/t otal hemoglobin ratio (mass fraction)on 12-13-2021 HbA1c (Bld) [Mass fraction] 5.1 % 3.8-5.6 [facility] Work Phone: Comment on above: Normal < 5.7 % Predi abetic 5.7 - 6.4 % Diabetic >or= 6.5 % Please note range changes. Cervical or vagninal specime n microscopic examination by cytology stain (reported ason 09-10-2021 Cytology report Cyto stain Doc (Cvx/Vag) Comment . [facility] Work Phone: Comment on above: The Pap smear is a s creening test designed to aid in thedetection of premalignant and malignant conditions of theuterine cervix. It is not a diagnostic procedure andshould not be used as the sole means of detecting cervicalcancer. Both false-positive and false-negative reports dooccur. Laboratory - Cytologyon 08-15 Anesthetic Assistant Cyto stain Nom (Cvx/Vag) [ID] Comment . [facility] Work Phone: Comment on above: Richar Garcia totechnologist (ASCP) Pathologist Cyto stain Nom (Cvx/Vag) [ID] Comment . [facility] Work Phone: Comment on above: Verona Lugo MD, Pathologist Recommended follow-up Cyto stain Nom (Cvx/Vag) Comment . [facility] Work Phone: Comment on above: Suggest follow up as clinically appropriate. Laboratory - Miscellaneous t estson 09-10-2021 Service comment (Unsp spec) [Interp] Comment . [facility] Work Phone: Comment on above: This liquid based Th inPrep(R) pap test was screened withthe use of an image guided system. Service comment (Unsp spec) [Interp] . . [facility] Work Phone: No Panel Informationon 09-10 Pathology report final diagnosis Narrative Comment . [facility] Work Phone: Comment on above: EPITHELIAL CELL ABNO RMALITY.ATYPICAL SQUAMOUS CELLS OF UNDETERMINED SIGNIFICANCE (ASC-US). R87.610 Vital Signs Date Time Vital Sign Value Performing Clinician Faci lity 10-22-2021 09:12-0400 Body temperature 98.6 [degF] Dr. Vernon Marks Work Phone: [facility] Work Phone: 10-22-2021 09:12-0400 Diastolic blood pressure 88 mm[Hg] Dr. Vernon Marks Work Phone: [facility] Work Phone: 10-22-2021 09:12-0400 Heart rate 112 /min Dr. Vernon Marks Work Phone: [facility] Work Phone: 10-22-2021 09:12-0400 Respiratory rate 16 /min Dr. Vernon Marks Work Phone: [facility] Work Phone: 10-22-2021 09:12-0400 SaO2% (BldA) [Mass fraction] 97 % Dr. Vernon Marks Work Phone: [facility] Work Phone: 10-22-2021 09:12-0400 Systolic blood pressure 152 mm[Hg] Dr. Vernon Marks Work Phone: [facility] Work Phone: Encounters Encounter Date Encounter Type Care Provider Facility Start: 04-13-2024 End: 04-13-2024 ambulatory Vernon Marks Facility:[facility] Start: 03-27-2024 End: 03-27-2024 ambulatory Vernon Marks Facility[facility] Start: 01-05-2024 End: 01-05-2024 Emergency department patient visit Jeremy Henry Facility:[facility] Start: 08-25-2023 End: 08-25-2023 ambulatory Vernon Marks Facility:[facility] Start: 08-05-2023 Encounter for genera l adult medical examination with abnormal findings Vernon Marks [facility] Start: 2023 End: 2023 ambulatory [facility] Work Phone: Start: 2023 End: 2023 Patient encounter procedure [facility] Start: 2023 End: 2023 ambulatory Vernon Marks Facility:[facility] Start: 03-15-2022 End: 03-15-2022 ambulatory [facility] Work Phone: Start: 03-15-2022 End: 03-15-2022 Patient encounter procedure [facility] Start: 12-13-2021 End: 12-13-[address] Vernon Marks Work Phone: [facility] Start: 10-22-2021 End: 10-22-[address] Vernon Marks Work Phone: [facility] Start: 09-10-2021 End: 09-10-2021 Patient encounter procedure [facility] Payers Date Payer Category Payer Unknown [id number] 2023 Self-pay [id number] 2015 Unknown [id number] Unknown [id number] [id number] [id number] Unknown [id number] [id number] [id number] Unknown [id number] [id number] [id number] Unknown [id number] [id number] [id number] Unknown [id number] 2.16.8 [id number] Social History Date Type Detail Facility Start: 09-16-2018 End: 08-10-2022 Tobacco smoking status ALIS Unknown if ever smoked [facility] Start: 1975 Sex Assigned At Female [facility] Clinical Note 09-10-2021 Note Date & Type Note Facility 09-10-2021 Note [facility] Work Phone: Pap Smear Specimen Adequacy September 10, 2021 3:17pm Comment . Satisfactory for evaluation. Endocervical and/or squamous metaplasticcells (endocervical component) are present. Comment on above: Satisfactory for carlos luation. Endocervical and/or squamous metaplasticcells (endocervical component) are present. Evaluation note Note Date & Type Note Facility Evaluation note No assessment information availa ble [facility] Work Phone: Evaluation note Note Date & Type Note Facility Evaluation note Diagnosis Onset Date Acute bronchitis, unspecified acute [facility] Work Phone: Chief Complaint and Reason for Visit Chief Complaint SCREENING Chief Complaint SCREENING CONGESTION/SORE THROAT/COUGH Reason for Visit Acute bronchitis, un specified Advance Directives No Advanced Directives Records Found Advance Directive Response Recorded Date/ Time Advance Directives No July 04, 2015 8:59am Living Will No July 04 16 8:59am Power of [employer] No July 04, 2015 8:59am Advance Directive Response Recorded Date/ Time Advance Directives No July 04, 2015 7:59am Living Will No June 17 3 10:58am Power of [employer] No June 17 023 10:58am Summary Purpose Family History No Family History Records Found Additional Source Comments Goals (unrecognized section and content) Goals may be documented in a n alternate sectionGoals may be documented in an alternate sectionGoals may be documented in an alternate sectionGoals may be documented in an alternate section Care Teams (unrecognized sec tion and content) Team Status: Active Member Role Status Dates Dr. Vernon Marks MD Family Provider Active Dr. Vernon Marks MD Primary Care Provider Active Team Status: Inactive Member Role Status Dates Dr. Vernon Marks MD Primary Care Provider, Attending Nilam jean baptiste Active INFORMATION SOURCE (unrecogn ized section and content) DATE CREATED AUTHOR 05/07/2024 [facility] FOR RECORDS PERTAINING TO PATIENTS WHO ARE OR HAVE BEEN ENROLLED IN A CHEMICAL DEPENDENCY/SUBSTANCEABUSE PROGRAM, SOME INFORMATION MAY BE OMITTED. This clinical summary was aggregated from multiple sources. Caution should be exercised in using it in the provision of clinical care. This summary normalizes information from multiple sources, and as a consequence, information in this document may materially change the coding, format and clinical context of patient data. In addition, data may be omitted in some cases. CLINICAL DECISIONS SHOULD BE BASED ON THE PRIMARY CLINICAL RECORDS. [employer] provides no warranty or guarantee of the accuracy or completeness of information in this document.
[2025-06-10 10:31] LABS: Cholesterol 156 mg/dL (<=200); Low Density Lipoprotein Calc. 74 mg/dL; Triglycerides 277 mg/dL; Very Low Density Lipoprotein 55 mg/dL (5-40); cholesterol:hdl ratio screen 4.17
== END | disposition home or self-care (01) ==
LOC: MFPLAB 08:30
PROVIDERS: PCP Family Medicine
DX: Z13.1 Encounter for screening for diabetes mellitus (principal); Z13.220 Encounter for screening for lipoid disorders
CPT/HCPCS: 36415; 80061; 83036